=== PATIENT | female | born 1930 | race Caucasian/White ===

== ENCOUNTER 2018-03-22 11:34 | Inpatient (IN) ==
[2018-03-22] MEDS ORDERED: Ondansetron 4 MG/2 ML VIAL IVP ONE ×2 (11:46→14:12)
[2018-03-22] MEDS ORDERED: *HR* FentaNYL (PF) 100 MCG/2 ML VIAL IVP ONE ×2 (11:48→13:13)
--- NOTE | 2018-03-22 12:05 | Emergency Department Note ---
Disposition Clinical Impression: Hip fracture Qualifiers: Encounter type: initial encounter Fracture type: closed Laterality: right Qualified Code(s): S72.001A - Fracture of unspecified part of neck of right femur, initial encounter for closed fracture Disposition: Admitted As Inpatient Condition: Fair Referrals: NONE,PCP [Primary Care Provider] - Forms: ED Satisfaction Letter Time of Disposition: 14:45 Fall HPI - General Chief Complaint: ED Fall Stated Complaint: fall/R hip pain Time Seen by Provider: 03/22/18 11:39 Source: patient, EMS Mode of arrival: EMS Limitations: altered mental status - History of Present Illness HPI Narrative: Patient is an 87-year-old female who presented to [facility] ED on 03/22/18 with chief complaint of right-sided hip pain. Patient reports that she does not know how long she has had this hip pain, nor does she know how it started. Patient does not remember having a mechanical fall. She is unable to tell if she has ever had a similar injury before. Patient reports having extreme sharp pain in the right hip. Denies having any pain anywhere else. Pain is nonradiating. The patient is externally rotated. She has a small abrasion on her elbow. No other visible injuries. No further complaints at this time. Onset (ago): unknown Fall Witnessed: no Location of injury - extremities: Right: hip Severity: severe Associated symptoms (after fall): Denies: headache, neck pain, numbness - Related Data Home Medications Medication Instructions Recorded Confirmed LORazepam [Ativan] 0.5 mg PO DAILY 03/22/18 03/22/18 Levothyroxine [Synthroid] 175 mcg PO 0630 03/22/18 03/22/18 Loratadine [Claritin] 10 mg PO DAILY 03/22/18 03/22/18 Pravastatin Sodium [Pravachol] 20 mg PO HS 03/22/18 03/22/18 Sertraline [Zoloft] 150 mg PO DAILY 03/22/18 03/22/18 Allergies Allergy/AdvReac Type Severity Reaction Status Date / Time No Known Allergies Allergy Verified 07/07/16 11:48 Review of Systems: As Per HPI Constitutional: Reports: as per HPI. Denies: fever, chills, weakness Eyes: Reports: as per HPI ENT ED: Reports: as per HPI Cardiovascular: Reports: as per HPI. Denies: chest pain, palpitations, dyspnea on exertion Respiratory: Reports: as per HPI. Denies: cough, dyspnea, wheezes Gastrointestinal: Reports: as per HPI. Denies: abdominal pain, nausea, vomiting Genitourinary: Reports: as per HPI. Denies: urgency, dysuria, frequency Musculoskeletal: Reports: as per HPI. Denies: back pain Integumentary: Reports: as per HPI, abrasion Neurological: Reports: as per HPI, confusion. Denies: weakness, numbness Psychiatric: Reports: as per HPI. Denies: anxiety, depression Endocrine: Reports: as per HPI Fall PMH - Past Medical History Medical history: Reports: dementia, hyperlipidemia, hypertension, thyroid disease Psychiatric history: Reports: anxiety, depression - Social History Smoking Status: Unknown if ever smoked Alcohol use: Reports: none Drug use: Reports: none Physical Exam - General Limitations: altered mental status, physical limitation, age General appearance: alert, in no apparent distress - Head Head exam: atraumatic, normocephalic, normal inspection - Eye Eye exam: Present: normal appearance, PERRL, EOMI - ENT ENT exam: normal exam, normal oropharynx - Neck Neck exam: Present: normal inspection - Chest Chest inspection: Present: normal inspection, symmetric chest wall rise - Respiratory Respiratory exam: Present: normal lung sounds bilaterally. Absent: respiratory distress - Cardiovascular Cardiovascular exam: Present: regular rate, normal rhythm, normal heart sounds, +S1, +S2. Absent: bradycardia, tachycardia, systolic murmur, diastolic murmur - Abdominal Exam Abdominal exam: Present: soft, Non-Tender - Expanded Lower Extremity Exam Hip/Pelvis exam: Present: tenderness, deformity, external rotation (Patient's right hip is externally rotated.) - Neurological Exam Neurological exam: Present: alert Course Course Narrative: Patient presents to the emergency department with a possible right hip fracture after an unwitnessed fall. Patient is unable to provide any history, as she is unable to remember the event. We will obtain head and neck CT to rule out a head/neck injury. Patient will be given fentanyl for pain control. We will obtain x-ray of both the elbow and hip, as well as a CBC, CMP, PT/INR, and EKG - Reevaluation(s) Reevaluation #1: Hip x-ray demonstrated the presence of a right femoral neck fracture. Spoke with orthopedics; agreed to see patient. Spoke with the hospitalist; has agreed to accept the patient patient will be admitted to the hospitalist service. Vital Signs Temperature 97.5 F L 03/22/18 11:42 Pulse Rate 67 03/22/18 11:42 Respiratory Rate 18 03/22/18 11:42 Blood Pressure 182/139 03/22/18 11:42 O2 Sat by Pulse Oximetry 99 03/22/18 11:42 Temperature 97.5 F L 03/22/18 11:42 Pulse Rate 66 03/22/18 13:47 Respiratory Rate 18 03/22/18 13:47 Blood Pressure 195/112 03/22/18 13:47 O2 Sat by Pulse Oximetry 99 03/22/18 13:47 Oxygen Delivery Oxygen Delivery Nasal Cannula Fall - Medical Records Medical records reviewed: Yes I reviewed the patient's medical records. - Lab Data Lab results reviewed: Yes I reviewed the patient's lab results. Result diagrams: 03/22/18 11:46 03/22/18 14:00 Lab Results 03/22/18 03/22/18 03/22/18 Range/Units 11:46 14:00 14:00 WBC 10.5 (4.3-11.1) K/mcL RBC 4.11 (3.82-4.97) M/mcL Hgb 12.5 (11.5-15.4) g/dL Hct 39.6 (35.3-44.9) % MCV 96.4 (83.0-100.0) fL MCH 30.4 (28.0-33.3) pg MCHC 31.6 (31.6-35.5) g/dL RDW 13.4 (11.5-14.5) % Plt Count 65 L (140-400) K/mcL MPV 12.3 (9.4-12.4) fL Immature Gran % 1.0 (0-4) % Seg Neutrophils % 77.6 % Lymphocytes % 13.2 % Monocytes % 7.1 % Eosinophils % 0.8 % Basophils % 0.3 % Neutrophils # 8.2 (1.6-8.9) K/mcL Lymphocytes # 1.4 (0.6-4.6) K/mcL Monocytes # 0.8 (0.0-1.3) K/mcL Eosinophils # 0.1 (0.0-0.6) K/mcL Basophils # 0.0 (0.0-0.2) K/mcL PT 11.2 (9.4-12.1) Seconds INR 1.0 Sodium 139 (136-145) mEq/L Potassium 3.8 (3.5-5.1) mEq/L Chloride 106 (98-107) mEq/L Carbon Dioxide 24 (23-29) mEq/L BUN 31 H (8-23) mg/dL Creatinine 0.89 (0.60-1.20) mg/dL Est GFR ( Amer) > 60 (> 60) Est GFR (Non-Af Amer) 60 (> 60) BUN/Creatinine Ratio 35 H (6-26) Glucose 143 H (70-105) mg/dL Calculated Osmolality 297 (280-300) Calcium 8.6 (8.6-10.3) mg/dL Total Bilirubin 0.3 (0.3-1.0) mg/dL AST 19 (13-39) Units/L ALT 14 (7-52) Units/L Alkaline Phosphatase 71 (34-104) Units/L Serum Total Protein 6.6 (6.4-8.9) g/dL Albumin 3.9 (3.5-5.7) g/dL Globulin 2.7 (2.4-3.5) g/dL Albumin/Globulin Ratio 1.4 (1.1-2.2) - Radiology Data Radiology results reviewed: Yes I reviewed the patient's radiology results. Cervical Spine CT 03/22/18 11:46 IMPRESSION: 1. Reversal of the normal cervical lordosis, without acute fracture or subluxation of the cervical spine. 2. Mild approximate 3 mm anterolisthesis of C3 on C4, most likely degenerative in etiology. 3. Moderate multilevel degenerate disc disease, as detailed above. D/ / 03/22/2018 13:23:52 Stone Linares MD / [facility] Interpreting Provider: Stone Linares MD Elbow X-Ray 03/22/18 11:46 IMPRESSION: No acute osseous abnormality. D/ / 03/22/2018 12:45:04 Kristian Victor MD / [facility] Interpreting Provider: Kristian Victor MD Head CT 03/22/18 11:46 IMPRESSION: No acute intracranial abnormality. D/ / Kristian Victor MD / Kristian Victor MD Interpreting Provider: Kristian Victor MD Hip X-Ray 03/22/18 11:46 IMPRESSION: Subcapital right femoral neck fracture. D/ / 03/22/2018 12:46:28 Kristian Victor MD / [facility] Interpreting Provider: Kristian Victor MD - EKG Data EKG attestation: Yes I reviewed and interpreted this EKG. EKG results narrative: Sinus rhythm. Ventricular rate 66 bpm. MT interval 198. QRS duration 77. Attestation Statement - Attestation Attestation: Patient was seen with resident physician. I reviewed the history, physical, assessment and plan, and agree with the findings. I also personally evaluated this patient and had [id number] time with this patient. 87-year-old female presents emergency Department with chief complaint of fall. She is retirement patient who has dementia and does not really remember the incident or the event. She was unable to ambulate afterwards and EMS was contacted and she is brought to the emergency department for additional evaluation and treatment. Patient states that her hip hurts but has no other complaints at this time. Review of systems remainder reviewed as best as we could considering the patient 's dementia. Did not get any other positive findings. Physical exam vital signs were stable. ENT shows no signs of trauma head and neck are all nontender. Back is nontender. Heart regular rhythm and rate. Chest wall stable. Abdomen is soft there is no tenderness there is no bruising. Extremities she has a small bruise to the right elbow posteriorly but moves everything without difficulty and it is nontender. Extremities the right leg is externally rotated and shortened the right hip is exquisitely tender to palpation. Distal pulses are intact. Neurologically she is alert and appears in some discomfort, but there is no obvious focal deficits. Psych unable to evaluate fully. ED course we will do a preop evaluation and a full workup. The patient does have a right hip fracture. We will also get a head CT and a neck CT scan since she does not really remember the fall I want sure there is no intercranial abnormalities. We will notify orthopedics as well as a hospitalist service to arrange for admission and definitive management for the patient's condition. Head CT and neck CT were negative for acute injury. Other labs are largely unremarkable. EKG does not show acute ischemic changes. X-rays do show a right hip fracture. Orthopedics was counseled agree to accept the patient with medicine admission. Hospitalist service was notified and agreed to accept the patient as the admitting service. Hemodynamically she remained stable. We did her best control her pain with fentanyl. Blood pressure was high but it was very difficult to get a accurate reading because the patient continually moved around. Additionally patient has severe dementia was able to remember that she had a hip fracture even though between myself and the staff we told her approximately 100 times. I agree with resident physician assessment and plan.
[2018-03-22 13:14] LABS: Basophils % 0.3 %; Eosinophils # 0.1 K/mcL (0.0-0.6); Eosinophils % 0.8 %; Hematocrit 39.6 % (35.3-44.9); Hemoglobin 12.5 g/dL (11.5-15.4); Lymphocytes # 1.4 K/mcL (0.6-4.6); Lymphocytes % 13.2 %; Mean Corpuscular HGB Conc 31.6 g/dL (31.6-35.5); Mean Corpuscular Hemoglobin 30.4 pg (28.0-33.3); Mean Corpuscular Volume 96.4 fL (83.0-100.0); Mean Platelet Volume 12.3 fL (9.4-12.4); Monocytes % 7.1 %; Red Blood Count 4.11 M/mcL (3.82-4.97); Red Cell Distribution Width 13.4 % (11.5-14.5); Segmented Neutrophils % 77.6 %
[2018-03-22 13:38] LABS: Monocytes # 0.8 K/mcL (0.0-1.3); Neutrophils # 8.2 K/mcL (1.6-8.9); Platelet Count 65 K/mcL (140-400)
[2018-03-22 14:17] LABS: Prothrombin Time 11.2 Seconds (9.4-12.1)
[2018-03-22 14:33] LABS: Alanine Aminotransferase 14 Units/L (7-52); Albumin 3.9 g/dL (3.5-5.7); Albumin/Globulin Ratio 1.4 (1.1-2.2); Alkaline Phosphatase 71 Units/L (34-104); Aspartate Amino Transferase 19 Units/L (13-39); BUN/Creatinine Ratio 35 (6-26); Bilirubin,Total 0.3 mg/dL (0.3-1.0); Blood Urea Nitrogen 31 mg/dL (8-23); Calcium 8.6 mg/dL (8.6-10.3); Carbon Dioxide 24 mEq/L (23-29); Chloride 106 mEq/L (98-107); Globulin 2.7 g/dL (2.4-3.5); Glucose 143 mg/dL (70-105); Osmolality,Calculated 297 (280-300); Potassium 3.8 mEq/L (3.5-5.1); Sodium 139 mEq/L (136-145); Total Protein 6.6 g/dL (6.4-8.9); eGFR For African Americans > 60 (> 60); eGFR For Non-African Americans 60 (> 60)
[2018-03-22] MEDS ORDERED: Naloxone 0.4 MG/ML INJ IVP PRN (14:53)
[2018-03-22] MEDS ORDERED: Acetaminophen 325 MG TABLET PO PRN (14:53)
[2018-03-22] MEDS ORDERED: Ondansetron 4 MG/2 ML VIAL IVP PRN (14:56)
[2018-03-22] MEDS ORDERED: *HR* FentaNYL (PF) 100 MCG/2 ML VIAL IVP PRN ×2 (14:57→18:59)
[2018-03-22] MEDS ORDERED: 0.9 % Sodium Chloride 1,000 ML IVC SCH (15:00)
--- NOTE | 2018-03-22 15:00 | Internal Med History&Physical ---
<Ludwig Cannon - Last Filed: 03/22/18 14:58> Date of Encounter: 03/22/18 Time of Encounter: 14:58 Internal Medicine - H&P: HPI Admitted From: Long-term Nursing Facility Plans for Post Hospital Care: Transfer Student Worker Care History of present illness: Patient is an 87-year-old female who presented with chief complaint of right- sided hip pain. Patient reports that she does not know how long she has had this hip pain, nor does she know how it started. Patient does not remember having a mechanical fall. She is unable to tell if she has ever had a similar injury before. Patient reports having extreme sharp pain in the right hip. Denies having any pain anywhere else. Pain is nonradiating. Right leg is externally rotated. She has a small abrasion on her elbow. No other visible injuries. No further complaints at this time. At the ED, x-ray revealed right hip fracture, orthopedics was consulted, she will be admitted as inpatient for further management. Past Med Surg Social Fam HX - Past Medical History Medical history: dementia, hyperlipidemia, hypertension, thyroid disease Psychiatric history: anxiety, depression - Social History Smoking Status: Unknown if ever smoked Smokeless Tobacco Status: No Alcohol use: none Drug use: none Internal Medicine - H&P: Meds LORazepam [Ativan] 0.5 mg PO DAILY 03/22/18 [History] Levothyroxine [Synthroid] 175 mcg PO 0630 03/22/18 [History] Loratadine [Claritin] 10 mg PO DAILY 03/22/18 [History] Pravastatin Sodium [Pravachol] 20 mg PO HS 03/22/18 [History] Sertraline [Zoloft] 150 mg PO DAILY 03/22/18 [History] 3 Allergy/AdvReac Type Severity Reaction Status Date / Time No Known Allergies Allergy Verified 07/07/16 11:48 All Systems PM: A 10-system review of systems was performed and is negative for pertinent findings except as documented above in the HPI. Review of systems: REVIEW OF SYSTEMS: CONSTITUTIONAL: No weight loss, fever, chills, weakness or fatigue. HEENT: Eyes: No visual loss, blurred vision, double vision or yellow sclerae. Ears, Nose, Throat: No hearing loss, sneezing, congestion, runny nose or sore throat. SKIN: No rash or itching. CARDIOVASCULAR: No chest pain, chest pressure or chest discomfort. No palpitations or edema. RESPIRATORY: No shortness of breath, cough or sputum. GASTROINTESTINAL: No anorexia, nausea, vomiting or diarrhea. No abdominal pain or blood. GENITOURINARY: No dysuria, urgency, or frequency. NEUROLOGICAL: No headache, dizziness, syncope, paralysis, ataxia, numbness or tingling in the extremities. No change in bowel or bladder control. MUSCULOSKELETAL: see HPI. HEMATOLOGIC: No anemia, bleeding or bruising. LYMPHATICS: No enlarged nodes. No history of splenectomy. PSYCHIATRIC: No history of depression or anxiety. ENDOCRINOLOGIC: No reports of sweating, cold or heat intolerance. No polyuria or polydipsia. - Constitutional Vitals: Temp Pulse Resp BP Pulse Ox 97.5 F L 66 18 195/112 99 03/22/18 11:42 03/22/18 13:47 03/22/18 13:47 03/22/18 13:47 03/22/18 13:47 General appearance: Present: A&O X 2 Exam: PHYSICAL EXAMINATION: GENERAL APPEARANCE: The patient is alert, oriented and in no acute distress. HEENT: Head is normocephalic. The sinuses are nontender. Pupils are equal and reactive. The nares are patent. Oropharynx clear without lesions. NECK: Supple without lymphadenopathy. HEART: Regular rate and rhythm. LUNGS: No crackles or wheezes are heard. ABDOMEN: Soft, nontender, nondistended with good bowel sounds heard. Inguinal area is normal. EXTREMITIES: right hip externally rotated. NEUROLOGICAL: Gross nonfocal. SKIN: Warm and dry without any rash. Internal Med - H&P Results - Labs CBC & Chem 7: 03/22/18 11:46 03/22/18 14:00 - Assessment and plan (1) Hip fracture Current Visit: Yes Status: Acute Assessment and plan: 87-year-old female, [facility] resident, presented with acute right hip pain, status post a mechanical fall, x-ray revealed a right hip fracture. - History of dementia, hyperlipidemia, hypothyroidism, and hypertension. Patient denies history of CAD/IA/stroke/diabetes. - Blood pressure was elevated upon arrival, she is not on any BP medicine at the [facility], likely caused by pain/distress. - EKG pending, echocardiogram ordered, CBC ordered. - Revised cardiac risk index for preoperative risk is 1, low cardiac risk for surgery. - Orthopedics consult. Qualifiers: Encounter type: initial encounter Fracture type: closed Laterality: right Qualified Code(s): S72.001A - Fracture of unspecified part of neck of right femur, initial encounter for closed fracture (2) Dementia Current Visit: No Status: Chronic Assessment and plan: Mental status at baseline. Qualifiers: Dementia type: Alzheimer's disease Alzheimer's disease onset: late-onset Dementia behavioral disturbance: without behavioral disturbance Qualified Code (s): 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 disease with late onset; F02.80 - Dementia in other diseases classified elsewhere without behavioral disturbance (3) Hypertension Current Visit: No Status: Chronic Assessment and plan: Blood pressure elevated at the ED, likely due to pain, pain control, hydralazine when necessary. Qualifiers: Hypertension type: essential hypertension Qualified Code(s): I10 - Essential (primary) hypertension (4) Hypothyroidism Current Visit: No Status: Chronic Assessment and plan: Pending TSH, Continue home medication. Qualifiers: Hypothyroidism type: acquired Qualified Code(s): E03.9 - Hypothyroidism, unspecified - Time Spent With Patient Total time spent is greater than 50% in coordination of care (as documented) at patient's floor/unit and/or counseling patient: Greater than 35 minutes <Connor Romo - Last Filed: 03/22/18 19:13> Date of Encounter: 03/22/18 Internal Medicine - H&P: HPI History of present illness: Ms. Johnson is a 87 year old female All Systems PM: A 10-system review of systems was performed and is negative for pertinent findings except as documented above in the HPI. - Constitutional Vitals: Temp Pulse Resp BP Pulse Ox 98.5 F 78 20 191/99 96 03/22/18 16:14 03/22/18 16:14 03/22/18 16:14 03/22/18 16:14 03/22/18 16:14 Internal Med - H&P Results - Labs CBC & Chem 7: 03/22/18 11:46 03/22/18 14:00 - Attending Attestation I saw and examined this patient independently, and my medical decision making was reviewed with the COMMERCIAL INTELLIGENCE MANAGER/PA on 2017. I agree with the documented findings , assessment and treatment plan as described in the H&P. Patient abdominal is distended and will check KUB Patient is a very confused and demented she tried to move her right hip, produce a lot of pain, we will increase pain medication. - Time Spent With Patient Total time spent is greater than 50% in coordination of care (as documented) at patient's floor/unit and/or counseling patient:
--- NOTE | 2018-03-22 16:11 | Orthopedic Consult Note ---
Date of Encounter: 03/22/18 Time of Encounter: 16:09 Assessment and Plan (1) Fracture of hip, right, closed Current Visit: Yes Status: Acute Femoral neck fracture, displaced, most likely chronic with acute pain Plan: Patient would require a right hip hemiarthroplasty. Patient has significant dementia. If she is a nonambulator, the fracture may be treated conservatively with pain management. We are currently awaiting to hear from the patient's family power of assistant prosecuting attorney to decide on surgery. Qualifiers: Encounter type: initial encounter Qualified Code(s): S72.001A - Fracture of unspecified part of neck of right femur, initial encounter for closed fracture History of Present Illness Chief complaint: Right hip pain HPI: Ms. Johnson is a 87 year old female who is transferred from [facility] when a staff member noticed patient having pain in the right hip which being taken to the bathroom. There was no witnessed falls and the patient does not recall when she injured her hip. X-rays in the ER show a displaced right hip femoral neck fracture that is chronic. Patient is still reporting significant pain to the right hip currently. The patient has significant history for dementia. Unclear as to her ambulation status at this time. Past Med Surg Social Fam HX - Past Medical History Medical history: dementia, hyperlipidemia, hypertension, thyroid disease Psychiatric history: anxiety, depression - Social History Smoking Status: Unknown if ever smoked Smokeless Tobacco Status: No Alcohol use: none Drug use: none Medications and Allergies LORazepam [Ativan] 0.5 mg PO DAILY 03/22/18 [History] Levothyroxine [Synthroid] 175 mcg PO 0630 03/22/18 [History] Loratadine [Claritin] 10 mg PO DAILY 03/22/18 [History] Pravastatin Sodium [Pravachol] 20 mg PO HS 03/22/18 [History] Sertraline [Zoloft] 150 mg PO DAILY 03/22/18 [History] 3 Allergy/AdvReac Type Severity Reaction Status Date / Time No Known Allergies Allergy Verified 07/07/16 11:48 All Systems Reviewed: The remainder of the systems were reviewed and are negative Physical Exam - Constitutional Vitals: Temp Pulse Resp BP Pulse Ox 98 F 68 18 190/104 95 03/22/18 15:13 03/22/18 14:57 03/22/18 15:13 03/22/18 15:13 03/22/18 14:57 General appearance IM: A&O X 0, mild distress Exam: Head: Normocephalic/atraumatic Neck: Supple with mild diffuse tenderness Bilateral upper extremities, nontender over long bones, abrasion to left elbow Right lower extremity is shortened and externally rotated, mild tenderness in the anterior groin, painful range of motion Left lower extremity appears normal with no tenderness over joints or long bones Results - Labs Result Diagrams: 03/22/18 11:46 03/22/18 14:00 Labs: Abnormal lab results Plt Count 65 K/mcL (140-400) L 03/22/18 11:46 BUN 31 mg/dL (8-23) H 03/22/18 14:00 BUN/Creatinine Ratio 35 (6-26) H 03/22/18 14:00 Glucose 143 mg/dL (70-105) H 03/22/18 14:00 All other labs normal. - Diagnostic results Hip AP/Lateral x-ray: image reviewed (Displaced right hip femoral neck fracture , chronic in appearance) CT scan - cervical: report reviewed (Degenerative changes, reversal of normal lordosis) Consult Discharge Plan - Plan Referrals: NONE,PCP [Primary Care Provider] -
[2018-03-22] MEDS: *HR* Heparin 5,000 UNIT/ML VIAL SQ SCH (17:07)
[2018-03-22] MEDS: traMADol 50 MG TABLET PO PRN (19:15)
[2018-03-22 21:02] LABS: Bilirubin,Urine Negative (Negative); Blood,Urine Trace (Negative); Clarity,Urine Clear (Clear); Color,Urine Yellow (Yellow); Glucose,Urine (UA) Normal (Normal); Ketones,Urine Negative (Negative); Leukocyte Esterase,Urine Negative (Negative); Nitrite,Urine Negative (Negative); PH,Urine 5.5 pH Units (5.0-8.0); Protein,Urine 30 mg/dL (Neg-Trace); Specific Gravity,Urine 1.022 (1.010-1.025); Urobilinogen,Urine Normal (Normal)
[2018-03-22 21:04] LABS: Bacteria,Urine Many per hpf (None-Few); Hyaline Casts,Urine None Seen per lpf (None-Few); Squamous Epithelial Cell,Urine Many per lpf (None-Few); WBC,Urine 0-3 per hpf (0-3)
[2018-03-22] MEDS: Nystatin POWDER 30 GM BOTTLE TP SCH (23:18)
[2018-03-23] MEDS: *HR* Heparin 5,000 UNIT/ML VIAL SQ SCH ×2 (01:29→07:19)
[2018-03-23] MEDS: traMADol 50 MG TABLET PO PRN ×3 (02:36→20:45)
--- NOTE | 2018-03-23 07:22 | Anesthesia Evaluation PreOp ---
Date of Encounter: 03/23/18 Time of Encounter: 12:30 - Past History Planned Operation: Right Hip Hemiarthroplasty Cardiac History: HTN, Hyperlipidemia Pulmonary History: Denies Any Significant HX FACILITY REHAB DIRECTOR History: Other (dementia) Other Medical History: Thyroid, Other (anxiety/depression) Anesthesia History: No Prior Anesthetic Complications, Past Anesthesia Alcohol Use: none Drug use: none Medications and Allergies LORazepam [Ativan] 0.5 mg PO DAILY 03/22/18 [History] Levothyroxine [Synthroid] 175 mcg PO 0630 03/22/18 [History] Loratadine [Claritin] 10 mg PO DAILY 03/22/18 [History] Pravastatin Sodium [Pravachol] 20 mg PO HS 03/22/18 [History] Sertraline [Zoloft] 150 mg PO DAILY 03/22/18 [History] 3 Allergy/AdvReac Type Severity Reaction Status Date / Time No Known Allergies Allergy Verified 07/07/16 11:48 - Meds/Allergy Pre-op Review Medications Reviewed: Yes Allergies Reviewed: Yes Beta Blockers on Current Med List: No Anesthesia Results - Labs 03/23/18 10:38 03/23/18 09:58 03/22/2018 Echo Impressions: Grossly normal LV systolic function. Not all LV wall segments were well visualized. Mild left ventricular diastolic dysfunction. Normal right ventricular function. Mild aortic regurgitation. Mild mitral regurgitation. Mild-moderate tricuspid regurgitation. Mild pulmonary hypertension. - Imaging EKG: report reviewed (07/06/2016 SINUS RHYTHM WITH PAC NONSPECIFIC T-WAVE ABNORMALITY) Anesthesia Exam Vital Signs/O2 Sat, Most Current Temp Pulse Resp BP Pulse Ox 98.2 F 87 16 129/76 95 03/23/18 09:51 03/23/18 09:51 03/23/18 09:51 03/23/18 09:51 03/23/18 09:51 Height: 5'2''/1.57m Weight: 150 lbs/68 kg NPO (# of Hours): 8 Pain Scale: 0 Pain Scale Used: Numeric (1 - 10) - HEENT Pupil (Motor): EOMI Mallampati: II Teeth: Missing, Poor dentition Denture Type: Upper: Complete Oral Opening: Greater than 3 - FACILITY REHAB DIRECTOR LOC: Confused FACILITY REHAB DIRECTOR Motor: Normal RUE, Normal LUE, Normal RLE, Normal LLE, Normal Face FACILITY REHAB DIRECTOR Sensory: Normal: RUE, LUE, RLE, LLE, Face - Cardiac Rhythm: Regular Murmur: None - Pulmonary Breath Sounds: bilateral Clear Respiratory Effort: Symmetrical Anesthesia Assess/Plan ASA Score: 3 Modified [place] Scale for Level of Consciousness: Cooperative, oriented, and tranquil Anesthetic Plan: General Monitoring Plan: Standard Monitors Recovery Plan: PACU
[2018-03-23] MEDS: Nystatin POWDER 30 GM BOTTLE TP SCH ×2 (08:19→20:59)
[2018-03-23] MEDS ORDERED: *HR* LORazepam 0.5 MG TABLET PO SCH (09:00)
[2018-03-23] MEDS ORDERED: Loratadine 10 MG TABLET PO SCH (09:00)
[2018-03-23 10:47] LABS: Basophils % 0.3 %; Eosinophils % 0.4 %; Hematocrit 37.5 % (35.3-44.9); Hemoglobin 12.6 g/dL (11.5-15.4); Immature Granulocytes % 0.4 % (0-4); Lymphocytes # 0.9 K/mcL (0.6-4.6); Lymphocytes % 8.1 %; Mean Corpuscular HGB Conc 33.6 g/dL (31.6-35.5); Mean Corpuscular Hemoglobin 31.4 pg (28.0-33.3); Mean Corpuscular Volume 93.5 fL (83.0-100.0); Mean Platelet Volume 10.4 fL (9.4-12.4); Monocytes % 8.9 %; Neutrophils # 9.3 K/mcL (1.6-8.9); Red Blood Count 4.01 M/mcL (3.82-4.97); Red Cell Distribution Width 13.3 % (11.5-14.5); Segmented Neutrophils % 81.9 %
[2018-03-23 10:49] LABS: Platelet Count 160 K/mcL (140-400)
[2018-03-23 12:33] LABS: BUN/Creatinine Ratio 34 (6-26); Blood Urea Nitrogen 25 mg/dL (8-23); Calcium 8.3 mg/dL (8.6-10.3); Carbon Dioxide 26 mEq/L (23-29); Chloride 104 mEq/L (98-107); Glucose 103 mg/dL (70-105); Osmolality,Calculated 291 (280-300); Sodium 138 mEq/L (136-145); eGFR For African Americans > 60 (> 60); eGFR For Non-African Americans > 60 (> 60)
[2018-03-23 12:48] LABS: Potassium 3.5 mEq/L (3.5-5.1)
[2018-03-23] MEDS ORDERED: *HR* Rocuronium Bromide 50 MG/5 ML VIAL ONE (13:00)
[2018-03-23] MEDS ORDERED: *HR* Succinylcholine 200 MG/10 ML VIAL IVP ONE (13:00)
[2018-03-23] MEDS ORDERED: *HR* FentaNYL (PF) 100 MCG/2 ML VIAL ONE (13:00)
[2018-03-23] MEDS ORDERED: *HR* Propofol 200 MG/20 ML VIAL IVP ONE (13:00)
[2018-03-23] MEDS ORDERED: Lidocaine -MPF 2% 2 ML VIAL ONE (13:00)
[2018-03-23] MEDS ORDERED: *HR* PHENYLEPHRINE 1,000 MCG/10 ML SYRINGE IVP ONE (14:03)
[2018-03-23] MEDS ORDERED: ceFAZolin 2,000 MG in D5% in Water 100 ML IVPB ONE (14:16)
[2018-03-23] MEDS ORDERED: ceFAZolin 2,000 MG in 0.9 % Sodium Chloride 100 ML IVPB ONE (14:30)
[2018-03-23] MEDS ORDERED: Ondansetron 4 MG/2 ML VIAL ONE (15:02)
[2018-03-23] MEDS ORDERED: Dexamethasone 4 MG/ML VIAL ONE (15:02)
--- NOTE | 2018-03-23 16:21 | Anesthesia Evaluation Post Op ---
Date of Encounter: 03/23/18 Time of Encounter: 16:20 - Vital Signs Vital Signs: Vital Signs/O2 Sat, Most Current Temp Pulse Resp BP Pulse Ox 97.9 F 63 16 159/91 100 03/23/18 15:59 03/23/18 15:59 03/23/18 15:59 03/23/18 15:59 03/23/18 15:59 - Lungs Lungs: Clear Ascult./Percussion - Airway Airway: Non-obstructed - Cardiovascular Regular Rate - Mental Status Mental Status: Asleep with brisk response to light stimulation - Pain Pain Scale: 0 Pain Scale used: Numeric (1 - 10) - Nausea Vomiting Nausea Vomiting: Not Present - Hydration Hydration: NPO, Dias catheter - Discharge PostOp Status: Transfer Patient to floor
--- NOTE | 2018-03-23 16:24 | Operative Note ---
Date of procedure: 03/23/18 Pre-op diagnosis: Right hip femoral neck fracture Post-op diagnosis: same Procedure: Right hip hemiarthroplasty Implants: Josefina Biomet echo system Anesthesia: GETA Surgeon: Casper Moreno Was there an stores assistant present: No Estimated blood loss (cc): 150 Specimen: Femoral head sent to pathology Condition: stable Disposition: PACU Procedure in Detail: The patient received IV antibiotics in the holding area. She was brought to the operating room, sign in was performed. The patient underwent general anesthesia on the hospital bed. She was then transferred to the OR table in supine position. The patient was positioned in the left lateral decubitus position, supported by pelvic supports. Bony prominences of the left lower extremity were well padded. The right lower extremity was then prepped and draped in usual sterile fashion. A timeout was performed. The level of the greater trochanter was palpated, a 10-12 cm curvilinear posterior incision was made, followed by Bovie dissection. The hip abductor was sharply split in line with its fibers with a curved Hess scissors, incising the fascia over the gluteus ankush also. The Charnley retractors were then positioned, making sure all not to go too deeply, to protect the sciatic nerve. The bursa over the greater trochanter was excised with Bovie electrocautery. The right hip was then internally rotated, putting the short external rotators on stretch. These were taken down from the insertion point with the Bovie cautery, starting from less of a trochanter and going approximately to the femoral neck. The capsule along the posterior femoral neck and head was then T' ed, giving exposure to the fractured femoral head/neck. The head was then removed with a power corkscrew, and cutting the ligamentum teres. The head was measured and a size 45 mm diameter was chosen. The acetabulum was washed out of any bone fragments, and a trial head was placed giving a good fit. Next, the exposed fractured femoral neck was cleaned up with a rongeur, a hot box operator was then used to remove the lateral bone. The canal finder was then inserted. We then used a lateralizer, this pulled in the posterior flap of gluteus ankush muscle. The sciatic nerve was seen pulled up. On careful examination, the nerve was intact, We then started broaching with a press-fit broaches from the Josefina [employer]omet echo tray. Starting with a press-fit 7, and moving up to a press-fit 10, keeping the appropriate anteversion. The trial stem was well fixed with no toggling. The broach was then removed. The canal was irrigated out and suctioned. The Josefina [employer]omet Echo press-fit stem was then opened, using a lateralized 130 degree neck angle and a size 10 pressfit stem, the implant was tapped in place, making sure to keep the correct anteversion. Once well positioned, we trialed with a 45 mm diameter trial head, and a neutral neck length. Stability was checked along with leg length, it was felt that the leg length was slightly short. I then trialed with a +3 mm neck length. The leg lengths still felt short, we went up to a +6. The leg lengths felt equal, the patient had good extension of the left lower extremity, is able to flex the hip, adduct, and internally rotated up to 80 degrees before the hip started subluxing out. The trial components removed. The acetabulum was copiously irrigated with normal saline once again making sure it was well cleaned out. Next the 45 mm unipolar head was opened with a +6 mm neck length. This assembled and tapped in place. The hip was reduced, and stability was checked once again. We had good stability. The capsule was then closed with 2-0 FiberWire figure of 8 sutures. The leg was placed on Hess stand, and the short external rotators were reattached to the bone using the FiberWire. The tensor fascia along with the gluteus fascia was closed with FiberWire [id number] sutures and a #1 Vicryl running suture proximally. Once again irrigating the wound with pulse lavage. The deep fat layer was closed with 0 Vicryl, subcutaneous tissues with 2-0 Vicryl simple sutures, and finally the skin was closed with josefina. Sterile dressings were applied. A hip abduction wedge was in place between the patient' s legs. She was then rolled over into supine position and transferred back onto the hospital bed where she was extubated and taken to the recovery room in stable condition.
[2018-03-23] MEDS ORDERED: MOM Conc 10 ML UD.LIQ PO PRN (16:25)
[2018-03-23] MEDS ORDERED: *HR* OxyCODONE Immed Rel 5 MG TABLET PO PRN (16:25)
[2018-03-23] MEDS ORDERED: 0.9 % Sodium Chloride 1,000 ML IVC SCH (16:25)
[2018-03-23] MEDS ORDERED: Ringers Solution, Lactated 1,000 ML IVC SCH (16:25)
[2018-03-23] MEDS ORDERED: Ondansetron 4 MG/2 ML VIAL IVP PRN ×2 (16:25)
[2018-03-23] MEDS ORDERED: Naloxone 0.4 MG/ML INJ IVP PRN (16:25)
[2018-03-23] MEDS ORDERED: Sennosides 8.6 MG TABLET PO PRN (16:25)
[2018-03-23] MEDS ORDERED: Acetaminophen 325 MG TABLET PO PRN (16:25)
[2018-03-23] MEDS ORDERED: Temazepam 15 MG CAPSULE PO PRN (16:25)
[2018-03-23] MEDS: Ascorbic Acid 500 MG TABLET PO SCH (17:19)
[2018-03-23] MEDS: CeFAZolin Pre 2,000 MG/100 ML 2,000 MG/100 ML BAG IVPB SCH (23:07)
--- NOTE | 2018-03-23 23:08 | Internal Med Progress Note ---
Date of Encounter: 03/23/18 Time of Encounter: 19:00 - Assessment and plan (1) Fracture of hip, right, closed Current Visit: Yes Status: Acute Qualifiers: Encounter type: initial encounter Qualified Code(s): S72.001A - Fracture of unspecified part of neck of right femur, initial encounter for closed fracture (2) Hypothyroidism Current Visit: No Status: Chronic Qualifiers: Hypothyroidism type: acquired Qualified Code(s): E03.9 - Hypothyroidism, unspecified (3) HLD (hyperlipidemia) Current Visit: Yes Status: Acute (4) Depression with anxiety Current Visit: Yes Status: Acute - Time Spent With Patient Total time spent is greater than 50% in coordination of care (as documented) at patient's floor/unit and/or counseling patient: 25 - 35 minutes - Constitutional Vitals: Temp Pulse Resp BP Pulse Ox 97.7 F 74 16 121/76 93 03/23/18 22:23 03/23/18 22:23 03/23/18 22:23 03/23/18 22:23 03/23/18 22:23 General appearance: Present: A&O X 2 Internal Medicine: Result - Labs CBC & Chem 7: 03/23/18 10:38 03/23/18 09:58 Labs: Short CBC 03/23/18 Range/Units 10:38 WBC 11.4 H (4.3-11.1) K/mcL Hgb 12.6 (11.5-15.4) g/dL Hct 37.5 (35.3-44.9) % Plt Count 160 D (140-400) K/mcL Neutrophils # 9.3 H (1.6-8.9) K/mcL BMP 03/23/18 09:58 Sodium 138 Potassium 3.5 Chloride 104 Carbon Dioxide 26 BUN 25 H Creatinine 0.74 Glucose 103 Calcium 8.3 L - ABG Interpretation ABG results: PT/INR, D-dimer PT 11.2 Seconds (9.4-12.1) 03/22/18 14:00 - Impressions Impressions Echocardiogram 03/22/18 19:29 Impressions: Grossly normal LV systolic function. Not all LV wall segments were well visualized. Mild left ventricular diastolic dysfunction. Normal right ventricular function. Mild aortic regurgitation. Mild mitral regurgitation. Mild-moderate tricuspid regurgitation. Mild pulmonary hypertension. Left Ventricular Wall Motion: Rest Echo Findings The apex, apical inferior, mid inferior, basal inferior, apical anterior, mid anterior, basal anterior, mid anterior septal, mid inferior lateral, basal anterior septal and basal inferior lateral mendez were not visualized. All other wall segments showed normal motion. Findings: Study Quality * Technically challenging due to clinical status. No IV access for use of Definity. ECG Findings * Normal sinus rhythm. Left Ventricle * Grossly normal LV systolic function. * Mild left ventricular diastolic dysfunction. * Normal LV chamber size. * LV wall thickness not optimally measured due to image quality. Right Ventricle * Normal right ventricular function. Left Atrium * Normal left atrial size. Right Atrium * Normal right atrial size. Aortic Valve * Aortic valve not well visualized. * Mild aortic regurgitation. * Suboptimal Doppler interrogation. Mitral Valve * Normal mitral valve structure. * No mitral stenosis. * Mild mitral regurgitation. Tricuspid Valve * Tricuspid valve not well visualized. * Mild-moderate tricuspid regurgitation. * Estimated RA pressure is 3 mmHg. * Estimated RVSP is 45 mmHg. * Mild pulmonary hypertension. Pulmonic Valve * Pulmonic valve is not well visualized. * No pulmonic stenosis. * No pulmonic regurgitation. Pulmonary Artery * Pulmonary artery not well visualized. Aorta * Not well visualized. Pericardium * There is no pericardial effusion present. IVC * The IVC is not dilated. Hip X-Ray 03/23/18 15:52 IMPRESSION: Right hip arthroplasty without complication. D/ / 03/23/2018 16:19:13 Kristian Victor MD / [facility] Interpreting Provider: Kristian Victor MD - VTE Documentation of Mechanical Device: Intermittent pneumatic compression device Consult Discharge Plan - Plan Referrals: NONE,PCP [Primary Care Provider] -
[2018-03-24 01:34] LABS: Hematocrit 31.8 % (35.3-44.9); Hemoglobin 10.3 g/dL (11.5-15.4)
[2018-03-24 01:57] LABS: BUN/Creatinine Ratio 34 (6-26); Blood Urea Nitrogen 27 mg/dL (8-23); Calcium 7.5 mg/dL (8.6-10.3); Carbon Dioxide 22 mEq/L (23-29); Chloride 106 mEq/L (98-107); Glucose 124 mg/dL (70-105); Osmolality,Calculated 291 (280-300); Potassium 3.9 mEq/L (3.5-5.1); Sodium 137 mEq/L (136-145); eGFR For African Americans > 60 (> 60); eGFR For Non-African Americans > 60 (> 60)
[2018-03-24] MEDS: traMADol 50 MG TABLET PO PRN ×2 (02:47→18:44)
[2018-03-24 08:16] LABS: Estimated Average Glucose 123 mg/dl; Hemoglobin A1C 5.9 %
[2018-03-24] MEDS: Nystatin POWDER 30 GM BOTTLE TP SCH ×2 (10:19→22:38)
[2018-03-24] MEDS: Multivit/Ca/Min/Fe/FA 1 TAB TABLET PO SCH (10:20)
[2018-03-24] MEDS: Loratadine 10 MG TABLET PO SCH (10:20)
[2018-03-24] MEDS: Ascorbic Acid 500 MG TABLET PO SCH ×2 (10:20→17:31)
[2018-03-24] MEDS: *HR* LORazepam 0.5 MG TABLET PO SCH (10:21)
[2018-03-24] MEDS ORDERED: CefTRIAXone 2,000 MG VIAL IM ONE (11:43)
--- NOTE | 2018-03-24 11:43 | Orthopedics Progress Note ---
Date of Encounter: 03/24/18 Time of Encounter: 11:43 - Assessment and Plan (1) History of right hip hemiarthroplasty Current Visit: Yes Status: Acute Dressing changes daily. Discussed with patient son her weightbearing status which is weightbearing as tolerated. She is to continue PT/OT. As patient resides in a long-term care facility as a long-term resident recommend returning to that facility was the son states [place] once medically cleared. We did discuss that she will need to be evaluated in our office periodically and recommended follow-up in approximately 10-14 days. The son requested that we do perform all follow-up care at the facility. We did discuss that this is not feasible as we did not go to the nursing homes were patient's stay. However we did discuss that every accommodation would be made as necessary to keep patient comfortable yet achieve appropriate postoperative care. (2) Fracture of hip, right, closed Current Visit: Yes Status: Acute Qualifiers: Encounter type: initial encounter Qualified Code(s): S72.001A - Fracture of unspecified part of neck of right femur, initial encounter for closed fracture Subjective Principal diagnosis: Right femoral neck fracture Interval history: Patient is postoperative day #1 of right hip hemiarthroplasty performed on for right hip femoral neck fracture. This was performed by Dr. Moreno. Patient son is at the bedside and after asking several questions about the procedure and patient's prognosis. X-ray films were printed from postoperative as well as preoperative and presented to patient's son who is her POA to help answer some of his questions about the procedure.. We did discuss that she is weightbearing as tolerated however she states that her baseline is nearly bedridden. He is asking when patient will be discharged. At this time patient needs to be cleared by hospitalist for discharge however anticipated time of discharge would likely be tomorrow on 03/25/18 from an orthopedic surgical perspective. On examination patient is resting comfortably in bed. She is sleeping however is easily awoken. She is alert and oriented to person. On examination her right hip has dressings intact with no drainage noted. No skin deformity is noted to the surrounding incision. No calf tenderness noted to bilateral calves. She is neurovascularly intact to bilateral lower extremities. Posterior tibial pulses are intact. No foot drop is noted in either lower extremity. Patient has hip abduction pillow in place. Assessment: Status post right hip hemiarthroplasty for right femoral neck fracture Plan: Dressing changes daily. Discussed with patient son her weightbearing status which is weightbearing as tolerated. She is to continue PT/OT. As patient resides in a long-term care facility as a long-term resident recommend returning to that facility was the son states [facility] once medically cleared. We did discuss that she will need to be evaluated in our office periodically and recommended follow-up in approximately 10-14 days. The son requested that we do perform all follow-up care at the facility. We did discuss that this is not feasible as we did not go to the nursing homes were patient's stay. However we did discuss that every accommodation would be made as necessary to keep patient comfortable yet achieve appropriate postoperative care. Objective Vital signs: Vital Signs Temp Pulse Resp BP Pulse Ox 03/24/18 09:48 98.9 F 98 16 118/68 93 03/24/18 02:26 98.7 F 84 18 108/74 97 03/23/18 22:23 97.7 F 74 16 121/76 93 03/23/18 19:15 97.9 F 57 16 157/85 100 03/23/18 18:36 97.4 F L 63 12 143/82 100 03/23/18 18:18 100 03/23/18 18:16 97.4 F L 60 14 143/84 100 03/23/18 17:43 97.5 F L 58 12 158/85 100 03/23/18 17:17 97.4 F L 56 14 156/81 98 03/23/18 16:39 97.8 F 58 16 150/73 03/23/18 16:19 61 18 146/82 92 03/23/18 16:09 59 16 158/83 97 03/23/18 15:59 97.9 F 63 16 159/91 100 03/23/18 15:49 71 18 165/97 100 03/23/18 15:39 59 18 164/86 100 03/23/18 15:29 97.8 F 54 18 144/78 100 Intake and Output 03/23/18 03/24/18 03/24/18 23:59 07:59 15:59 Intake Total 0 / 0 0 / 0 Output Total 225 / 225 75 / 75 Balance -225 / -225 -75 / -75 Intake: Oral 0 / 0 0 / 0 Output: Catheter 225 / 225 75 / 75 - Labs CBC & BMP: 03/24/18 01:02 03/24/18 01:02 Labs: Abnormal lab results WBC 11.4 K/mcL (4.3-11.1) H 03/23/18 10:38 Hgb 10.3 g/dL (11.5-15.4) L D 03/24/18 01:02 Hct 31.8 % (35.3-44.9) L 03/24/18 01:02 Neutrophils # 9.3 K/mcL (1.6-8.9) H 03/23/18 10:38 Carbon Dioxide 22 mEq/L (23-29) L 03/24/18 01:02 BUN 27 mg/dL (8-23) H 03/24/18 01:02 BUN/Creatinine Ratio 34 (6-26) H 03/24/18 01:02 Glucose 124 mg/dL (70-105) H 03/24/18 01:02 Hemoglobin A1c 5.9 % (-5.6) H 03/23/18 09:58 Calcium 7.5 mg/dL (8.6-10.3) L 03/24/18 01:02 25-OH Vitamin D Total 26 ng/mL (30-80) L 03/23/18 09:58 TSH 5.828 mcIU/mL (0.340-5.600) H 03/23/18 09:58 Urine Protein 30 mg/dL (Neg-Trace) H 03/22/18 20:45 Urine Blood Trace (Negative) H 03/22/18 20:45 Ur Squamous Epith Cells Many per lpf (None-Few) H 03/22/18 20:45 Urine Bacteria Many per hpf (None-Few) H 03/22/18 20:45 - VTE Documentation of Mechanical Device: Intermittent pneumatic compression device Consult Discharge Plan - Plan Referrals: NONE,PCP [Primary Care Provider] -
--- NOTE | 2018-03-24 17:16 | Internal Med Progress Note ---
Date of Encounter: 03/24/18 Time of Encounter: 12:45 - Assessment and plan (1) Hip fracture Current Visit: Yes Status: Acute Assessment and plan: Hip XRay shows subcapital right femoral neck fracture; Orthopedics consulted, underwent right hip hemiarthroplasty POD-1; postoperative care per orthopedics; monitor Hb closely; noted to have a drop to 10.3 today, continue to monitor closely, started ferrous sulfate; DVT prophylaxis with s,c Lovenox; pain control with PRN PO Oxycodone; Qualifiers: Encounter type: initial encounter Fracture type: closed Laterality: right Qualified Code(s): S72.001A - Fracture of unspecified part of neck of right femur, initial encounter for closed fracture (2) Dementia Current Visit: Yes Status: Chronic Assessment and plan: supportive care and fall precautions; Qualifiers: Dementia type: Alzheimer's disease Alzheimer's disease onset: late-onset Dementia behavioral disturbance: without behavioral disturbance Qualified Code (s): 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 disease with late onset; F02.80 - Dementia in other diseases classified elsewhere without behavioral disturbance (3) Hypertension Current Visit: Yes Status: Chronic Qualifiers: Hypertension type: essential hypertension Qualified Code(s): I10 - Essential (primary) hypertension (4) Hypothyroidism Current Visit: Yes Status: Chronic Qualifiers: Hypothyroidism type: unspecified Qualified Code(s): E03.9 - Hypothyroidism , unspecified (5) Anemia Current Visit: Yes Status: Chronic Qualifiers: Anemia type: other cause Other causes of anemia: acute posthemorrhagic Qualified Code(s): D62 - Acute posthemorrhagic anemia - Time Spent With Patient Total time spent is greater than 50% in coordination of care (as documented) at patient's floor/unit and/or counseling patient: - Subjective Interval history: Patient is unable to provide history due to underlying dementia. She is uncooperative to physical exam, asking me to "leave the room as you do not belong here". - Constitutional Vitals: Temp Pulse Resp BP Pulse Ox 98.2 F 77 16 101/69 94 03/24/18 17:06 03/24/18 17:06 03/24/18 17:06 03/24/18 17:06 03/24/18 17:06 General appearance: Present: A&O X 1. Absent: answers questions appropriately - Respiratory Respiratory exam: Present: CTAB (anterolaterally). Absent: accessory muscle use , rales, rhonchi, wheezes - Cardiovascular Cardiovascular exam: Present: RRR, +S1, +S2. Absent: diastolic murmur, gallop, rubs, systolic murmur - GI/Abdominal GI/Abdominal exam: Present: distended, normal bowel sounds, soft, no peritoneal signs. Absent: tenderness - Extremities Exam Extremities exam: Present: warm, radial pulses palpable and symmetrical. Absent : calf tenderness, cyanotic, pedal edema Additional comments: right lateral hip in surgical dressing Internal Medicine: Result - Labs CBC & Chem 7: 03/24/18 01:02 03/24/18 01:02 Labs: Short CBC 03/24/18 Range/Units 01:02 Hgb 10.3 L D (11.5-15.4) g/dL Hct 31.8 L (35.3-44.9) % BMP 03/24/18 01:02 Sodium 137 Potassium 3.9 Chloride 106 Carbon Dioxide 22 L BUN 27 H Creatinine 0.80 Glucose 124 H Calcium 7.5 L - ABG Interpretation ABG results: PT/INR, D-dimer PT 11.2 Seconds (9.4-12.1) 03/22/18 14:00 - Impressions Impressions Hip X-Ray 03/23/18 15:52 IMPRESSION: Right hip arthroplasty without complication. D/ / 03/23/2018 16:19:13 [facility] Interpreting Provider: Kristian Victor MD - VTE Documentation of Mechanical Device: Intermittent pneumatic compression device Consult Discharge Plan - Plan Referrals: NONE,PCP [Primary Care Provider] -
[2018-03-24] MEDS ORDERED: Lidocaine -MPF 1% 5 ML AMPUL ONE (17:17)
[2018-03-24] MEDS: *HR* Enoxaparin 30 MG/0.3 ML SYRINGE SQ SCH ×2 (17:30→17:40)
[2018-03-24] MEDS: CeFAZolin Pre 2,000 MG/100 ML 2,000 MG/100 ML BAG IVPB SCH (17:30)
[2018-03-25 05:49] LABS: BUN/Creatinine Ratio 36 (6-26); Blood Urea Nitrogen 29 mg/dL (8-23); Calcium 7.5 mg/dL (8.6-10.3); Carbon Dioxide 22 mEq/L (23-29); Chloride 104 mEq/L (98-107); Glucose 105 mg/dL (70-105); Osmolality,Calculated 286 (280-300); Potassium 3.3 mEq/L (3.5-5.1); Sodium 135 mEq/L (136-145); eGFR For African Americans > 60 (> 60); eGFR For Non-African Americans > 60 (> 60)
[2018-03-25] MEDS: *HR* Enoxaparin 30 MG/0.3 ML SYRINGE SQ SCH (06:23)
--- NOTE | 2018-03-25 06:51 | Electrocardiograph Report ---
[address] [address] Test Date: 2018-03-22 Pat Name: Bella Johnson Department: 102 Room: [facility] Gender: F Weld Technician: Bryan : 1930 Requested By: Jitendra Moody Order Number: [id number] Reading MD: Nolberto Godoy Measurements Intervals Salol Rate: 66 P: 68 VT: 198 QRS: -4 QRSD: 77 T: 65 QT: 407 QTc: 421 Interpretive Statements SINUS RHYTHM WITH SINUS ARRHYTHMIA Electronically Signed On 03-25-2018 6:49:28 EDT by Nolberto Godoy
[2018-03-25 07:23] LABS: Basophils % 0.2 %; Eosinophils # 0.1 K/mcL (0.0-0.6); Eosinophils % 0.7 %; Hematocrit 25.3 % (35.3-44.9); Hemoglobin 8.7 g/dL (11.5-15.4); Immature Granulocytes % 0.8 % (0-4); Lymphocytes # 1.1 K/mcL (0.6-4.6); Lymphocytes % 9.3 %; Mean Corpuscular HGB Conc 34.4 g/dL (31.6-35.5); Mean Corpuscular Hemoglobin 31.6 pg (28.0-33.3); Mean Platelet Volume 11.7 fL (9.4-12.4); Monocytes # 1.5 K/mcL (0.0-1.3); Monocytes % 13.4 %; Neutrophils # 8.7 K/mcL (1.6-8.9); Nucleated Red Blood Cells 0.2 /100 WBC (0); Platelet Count 114 K/mcL (140-400); Red Blood Count 2.75 M/mcL (3.82-4.97); Red Cell Distribution Width 13.4 % (11.5-14.5); Segmented Neutrophils % 75.6 %
[2018-03-25] MEDS: Multivit/Ca/Min/Fe/FA 1 TAB TABLET PO SCH (10:32)
[2018-03-25] MEDS: *HR* LORazepam 0.5 MG TABLET PO SCH (10:32)
[2018-03-25] MEDS: Ascorbic Acid 500 MG TABLET PO SCH (10:32)
[2018-03-25] MEDS: Loratadine 10 MG TABLET PO SCH (10:33)
[2018-03-25] MEDS: Nystatin POWDER 30 GM BOTTLE TP SCH (10:40)
[2018-03-25] MEDS ORDERED: Potassium Chloride Elixir 20 MEQ/15 ML UDC PO ONE (12:28)
--- NOTE | 2018-03-25 13:48 | Discharge Summary ---
- NOTES TO OUTPATIENT PROVIDER Notes to Outpatient Provider: right hip fracture s/p surgery; monitor H/H Orders not resulted at time of discharge: Pending orders 03/25/18 12:26 Red Blood Cells [BBK] Stat Type and Screen [BBK] Stat Date of Encounter: 03/25/18 Time of Encounter: 13:45 - Discharge Diagnosis (1) Hip fracture Priority: Primary Status: Acute Qualifiers: Encounter type: initial encounter Fracture type: closed Laterality: right Qualified Code(s): S72.001A - Fracture of unspecified part of neck of right femur, initial encounter for closed fracture (2) Dementia Priority: Secondary Status: Chronic Qualifiers: Dementia type: Alzheimer's disease Alzheimer's disease onset: late-onset Dementia behavioral disturbance: with behavioral disturbance Qualified Code(s) : 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 disease with late onset; F02.81 - Dementia in other diseases classified elsewhere with behavioral disturbance (3) Hypertension Priority: Secondary Status: Chronic Qualifiers: Hypertension type: essential hypertension Qualified Code(s): I10 - Essential (primary) hypertension (4) Hypothyroidism Priority: Secondary Status: Chronic Qualifiers: Hypothyroidism type: unspecified Qualified Code(s): E03.9 - Hypothyroidism , unspecified (5) Anemia Priority: Primary Status: Chronic Qualifiers: Anemia type: other cause Other causes of anemia: acute posthemorrhagic Qualified Code(s): D62 - Acute posthemorrhagic anemia Hospital course: Ms. Johnson is a 87 year old female long-term alf resident, who was admitted with right-sided hip pain. X-ray showed right hip fracture. Orthopedic surgery was consulted, patient underwent right hip hemiarthroplasty on 03/23/2018. She was noted to have postoperative drop in hemoglobin, PRBC transfusion was planned however patient is extremely uncooperative due to underlying dementia, is unable to keep IV lines in. She was started on oral ferrous sulfate supplements and vitamin C. Case was discussed with orthopedic surgery, patient is currently stable for discharge back to [facility] with outpatient orthopedics follow-up. She is being discharged on prophylactic subcutaneous Lovenox. Discharge discussed with: nurse, oracle identity management consultant - Time Spent with Patient Total time spent providing and/or coordinating discharge services: Greater than 30 minutes (45 min) - Discharge Medications Prescriptions: Tramadol HCl [Ultram] 50 mg PO Q6H PRN 3 Days #5 tab PRN Reason: Severe Pain Home Medications: Levothyroxine [Synthroid] 175 mcg PO 0630 03/22/18 [History] Loratadine [Claritin] 10 mg PO DAILY 03/22/18 [History] Pravastatin Sodium [Pravachol] 20 mg PO HS 03/22/18 [History] Sertraline [Zoloft] 150 mg PO DAILY 03/22/18 [History] Acetaminophen [Tylenol] 650 mg PO Q6HR PRN tablet 03/25/18 [Rx] Ascorbic Acid [Vitamin C] 500 mg PO BIDWM tablet 03/25/18 [Rx] Docusate [Colace] 100 mg PO BID capsule 03/25/18 [Rx] Enoxaparin [Lovenox] 30 mg SQ Q12HCO #24 syringe 03/25/18 [Rx] Ferrous Sulfate 325 mg PO BIDWM tablet 03/25/18 [Rx] LORazepam [Ativan] 0.5 mg PO DAILY 5 Days #5 03/25/18 [Rx] Tramadol HCl [Ultram] 50 mg PO Q6H PRN 3 Days #5 tab 03/25/18 [Rx] Allergies/Adverse Reactions: 3 Allergy/AdvReac Type Severity Reaction Status Date / Time No Known Allergies Allergy Verified 07/07/16 11:48 Date of admission: 03/22/18 14:49 Primary care physician: PCP NONE Consults: 03/22/18 20:01 Consult to Nutrition [CONS] Routine Comment: Consulting Provider: NUTRITION Reason for Dietary Consult: MST Score 03/23/18 16:25 Consult to Nurse Navigator [CONS] Routine Comment: ortho navigator Consult to Occupational Therapy [CONS] Routine Comment: Evaluate, develop and implement POC Reason for Consult: total hip replacement Does patient have active BEDREST order?: No Is patient medically & hemodynamically stable?: Yes Consult to Physical Therapy [CONS] Routine Comment: Evaluate, develop and implement POC Reason for Consult: total hip replacement Does patient have active BEDREST order?: No Is patient medically & hemodynamically stable?: Yes Consult to Drop Crew Laborer [CONS] Routine Reason for SW Consult: post op joint replacement RT Post Op Consult [CONS] Routine Discharging clinician: Lydia Villalobos Anticipated date of discharge: 03/25/18 - Constitutional Vitals: Temp Pulse Resp BP Pulse Ox 98.9 F 81 18 122/76 94 03/25/18 11:33 03/25/18 11:33 03/25/18 11:33 03/25/18 11:33 03/25/18 11:33 General appearance: Present: A&O X 1. Absent: answers questions appropriately - Cardiovascular Cardiovascular exam: Present: RRR, +S1, +S2. Absent: diastolic murmur, gallop, rubs, systolic murmur - Patient Status Disposition: Transfer SNF Condition: Fair Functional capacity at discharge: uses cane/walker Overall status at discharge: patient is progressing back to baseline - Discharge Instructions Follow Up With: NONE,PCP [Primary Care Provider] - Additional Instructions: F/up with PCP in 1-2 weeks F/up with [facility] in 10-14 days Discharge Instructions: Total Hip Replacement Please call [facility] ([phone]), your Primary Care Physician, or report to the Emergency Room if you have any of the following symptoms: Nausea, vomiting, fever greater that 101.5, swelling, chest pain, shortness of breath, increased pain/redness/drainage/odor for your incision site, numbness/ tingling, or any other concerning symptoms. ACTIVITY:Weight-bearing as tolerated for 8 weeks with hip dislocation precautions that physical therapy taught you. You may progress as tolerated under the guidance of your physical therapist. You do not need to sleep with a pillow between your legs. You can also seep on the operative side or on your stomach. MEDICATIONS: Upon discharge resume your home medications. Take all the medications as prescribed. Take a stool softener if taking narcotic pain medications. Stool softeners are only effective if you drink enough fluids. Drink 6-8 glass of water or fluids a day, unless this is not allowed for another health problem. Despite using stool softeners, if you haven't had a bowel movement in 3 days, please switch to a gentle laxative. Gentle laxatives are sold over the counter. You should have a bowel movement within 24 hours, if not call the office. You will be discharged from the hospital with a prescription for pain medication. You are encouraged to decrease the use of narcotic pain medication as tolerated. Should you require a refill, please call the office. [facility] prescribes narcotic pain medication for only 4-6 weeks after surgery. If you require pain medication beyond this time period, you may be referred to your Primary Care Physician or to the Pain Clinic for further evaluation. Plan ahead for refills on pain medication as many narcotics either need to be picked up at the office or mailed. It is best to call 48-72 hours in advance of needing a prescription refill so you don't run out of medication. To help control the post-operative pain, you may take NSAIDs (Aleve,Advil, Motrin, ibuprofen, naprosyn) or Tylenol as prescribed on the bottle in addition to the pain medication. ANTICOAGULATION (blood thinners): Continue your Aspirin, Lovenox or Coumadin as prescribed to help prevent a blood clot in the leg or in the lungs. As long as your incision remains dry and you tolerate the NSAIDs (Aleve, Advil, Motrin, Ibuprofen, Naprosyn), it is OK to use the NSAIDS while you are taking your anticoagulation medication. Should your incision start to drain, stop the NSAID and contact our office. Common symptoms of blood clot in the legs include: localized pain, swelling, calf tenderness, redness or discoloration of the skin. Blood clot in the lung symptoms include: shortness of breath, rapid pulse, sweating, and chest pain that worsens with deep breathing, coughing up blood, lightheadedness, feelings of anxiety. If you experience any of these symptoms notify your physician immediately, go to the emergency room, or if having trouble breathing, call 911. WOUND CARE: Leave the dressing on for 7 to 10days. You may change the dressing if it is saturated greater than 50%. Do not get the dressing wet at anytime. Wash your hands with antibacterial soap, rinse and dry prior to any wound care. If you have josefina the visiting nurse or rehab facility can remove the stapes 10-14 days after surgery and place steri-strips across the wound. Leave the steri-strips in place until they fall off on their own. You may let water from the shower run on top of the steri-strips. If you do not have a visiting nurse or rehab facility, you will need to return to the office at 10-14 days for the josefina to be removed. If you have itching or redness around the dressing call the office. FOLLOW-UP: Please follow up with your surgeon in the orthopedic clinic in 6 weeks from the day of surgery. If you have josefina that need to be removed, you will need to come back to the office in 10-14 days from the day of surgery. - Diet and Activity Activity: as per physical therapy (WBAT) Diet: low salt diet - VTE Documentation of Mechanical Device: Intermittent pneumatic compression device
--- NOTE | 2018-03-25 13:54 | Physician Discharge Referral ---
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 Prognosis: Fair - Transfer Medications Prescriptions: Tramadol HCl [Ultram] 50 mg PO Q6H PRN 3 Days #5 tab PRN Reason: Severe Pain Home Medications: Levothyroxine [Synthroid] 175 mcg PO 0630 03/22/18 [History] Loratadine [Claritin] 10 mg PO DAILY 03/22/18 [History] Pravastatin Sodium [Pravachol] 20 mg PO HS 03/22/18 [History] Sertraline [Zoloft] 150 mg PO DAILY 03/22/18 [History] Acetaminophen [Tylenol] 650 mg PO Q6HR PRN tablet 03/25/18 [Rx] Ascorbic Acid [Vitamin C] 500 mg PO BIDWM tablet 03/25/18 [Rx] Docusate [Colace] 100 mg PO BID capsule 03/25/18 [Rx] Enoxaparin [Lovenox] 30 mg SQ Q12HCO #24 syringe 03/25/18 [Rx] Ferrous Sulfate 325 mg PO BIDWM tablet 03/25/18 [Rx] LORazepam [Ativan] 0.5 mg PO DAILY 5 Days #5 03/25/18 [Rx] Tramadol HCl [Ultram] 50 mg PO Q6H PRN 3 Days #5 tab 03/25/18 [Rx] Allergies/Adverse Reactions: 3 Allergy/AdvReac Type Severity Reaction Status Date / Time No Known Allergies Allergy Verified 07/07/16 11:48 - Respiratory Orders Smoking Cessation: Smoking cessation has been advised. For more information, call the [place] Tobacco Quit Line at 5-578-HDBX-NOW. - Advance Directives Power of Gear Changer: Yes (Son) Code Status: Full Code - Mobility Orders Ambulate - Rehabiliation Orders Rehab Potential: Fair Rehab Orders: ROM Exercises, Evaluation for Physical Therapy, Evaluation for Occupational Therapy - Diet Orders Cardiac CERTIFICATION: I certify that the transfer of the above named patient to an Extended Care Facility is necessary for the continuing treatment of the diagnosis listed. The above information is true and accurate reflection of patient's current condition. Confidential - Redisclosure prohibited without a patient's written consent.
[2018-03-25 14:50] VITALS: BP 135/78
--- NOTE | 2018-03-25 16:32 | Orthopedics Progress Note ---
Date of Encounter: 03/25/18 Time of Encounter: 13:00 - Assessment and Plan (1) Hip fracture Current Visit: Yes Status: Acute POD#2 s/p right hip hemiarthroplasty 03/23/18 Continue with therapy WBAT. Hgb 8.2 today. plan was for Powerglide insertion for transufsion but patient has removed every IV placed thus far. Continue to use abduction pillow while in bed. Continue to follow hip precautions. Dressings to right hip to be changed as needed for any drainage, none visible currently. DVT Prophylaxis: lovenox x 2 weeks then aspirin 325mg x 4 weeks. Will follow up with Leanne Grant PA-C in [facility] office at [facility] Qualifiers: Encounter type: initial encounter Fracture type: closed Laterality: right Qualified Code(s): S72.001A - Fracture of unspecified part of neck of right femur, initial encounter for closed fracture Subjective Principal diagnosis: POD#2 s/p right hip hemiarthroplasty 03/23/18 Interval history: Patient sitting comfortably in bed, denies any concerns at this time. States she has no pain to hip and states she worked with therapy this morning. Objective Vital signs: Vital Signs Temp Pulse Resp BP Pulse Ox 03/25/18 14:47 98.7 F 88 16 135/78 93 03/25/18 11:33 98.9 F 81 18 122/76 94 03/25/18 06:32 99.0 F 98 16 143/74 93 03/25/18 03:25 98.1 F 93 14 131/69 93 03/24/18 23:06 99.7 F H 91 16 104/65 95 03/24/18 19:44 100.1 F H 96 18 105/62 93 03/24/18 17:06 98.2 F 77 16 101/69 94 Intake and Output 03/25/18 03/25/18 03/25/18 07:59 15:59 23:59 Other: Stool Size Moderate Stool Consistency soft Stool Color Brown # Urine Diapers 1 # Bowel Movements 1 # Bowel Movement Diapers 1 Incision: clean and dry (dressings to right hip are c/d/i with no visible drainage or surrounding erythema, mild tenderness to palpation of right hip. no calf tenderness to palpation. good dorsiflexion of foot. grossly NV intact.) - Labs CBC & BMP: 03/25/18 06:59 03/25/18 05:05 Labs: Abnormal lab results WBC 11.5 K/mcL (4.3-11.1) H 03/25/18 06:59 RBC 2.75 M/mcL (3.82-4.97) L 03/25/18 06:59 Hgb 8.7 g/dL (11.5-15.4) L D 03/25/18 06:59 Hct 25.3 % (35.3-44.9) L 03/25/18 06:59 Plt Count 114 K/mcL (140-400) L 03/25/18 06:59 Monocytes # 1.5 K/mcL (0.0-1.3) H 03/25/18 06:59 Nucleated RBCs/100 WBC 0.2 /100 WBC (0) H 03/25/18 06:59 Sodium 135 mEq/L (136-145) L 03/25/18 05:05 Potassium 3.3 mEq/L (3.5-5.1) L 03/25/18 05:05 Carbon Dioxide 22 mEq/L (23-29) L 03/25/18 05:05 BUN 29 mg/dL (8-23) H 03/25/18 05:05 BUN/Creatinine Ratio 36 (6-26) H 03/25/18 05:05 Hemoglobin A1c 5.9 % (-5.6) H 03/23/18 09:58 Calcium 7.5 mg/dL (8.6-10.3) L 03/25/18 05:05 25-OH Vitamin D Total 26 ng/mL (30-80) L 03/23/18 09:58 TSH 5.828 mcIU/mL (0.340-5.600) H 03/23/18 09:58 Urine Protein 30 mg/dL (Neg-Trace) H 03/22/18 20:45 Urine Blood Trace (Negative) H 03/22/18 20:45 Ur Squamous Epith Cells Many per lpf (None-Few) H 03/22/18 20:45 Urine Bacteria Many per hpf (None-Few) H 03/22/18 20:45 - VTE Documentation of Mechanical Device: Intermittent pneumatic compression device Consult Discharge Plan - Plan Additional Instructions: F/up with PCP in 1-2 weeks F/up with [facility] in 10-14 days Discharge Instructions: Total Hip Replacement Please call [facility] ([phone]), your Primary Care Physician, or report to the Emergency Room if you have any of the following symptoms: Nausea, vomiting, fever greater that 101.5, swelling, chest pain, shortness of breath, increased pain/redness/drainage/odor for your incision site, numbness/ tingling, or any other concerning symptoms. ACTIVITY:Weight-bearing as tolerated for 8 weeks with hip dislocation precautions that physical therapy taught you. You may progress as tolerated under the guidance of your physical therapist. You do not need to sleep with a pillow between your legs. You can also seep on the operative side or on your stomach. MEDICATIONS: Upon discharge resume your home medications. Take all the medications as prescribed. Take a stool softener if taking narcotic pain medications. Stool softeners are only effective if you drink enough fluids. Drink 6-8 glass of water or fluids a day, unless this is not allowed for another health problem. Despite using stool softeners, if you haven't had a bowel movement in 3 days, please switch to a gentle laxative. Gentle laxatives are sold over the counter. You should have a bowel movement within 24 hours, if not call the office. You will be discharged from the hospital with a prescription for pain medication. You are encouraged to decrease the use of narcotic pain medication as tolerated. Should you require a refill, please call the office. [facility] prescribes narcotic pain medication for only 4-6 weeks after surgery. If you require pain medication beyond this time period, you may be referred to your Primary Care Physician or to the Pain Clinic for further evaluation. Plan ahead for refills on pain medication as many narcotics either need to be picked up at the office or mailed. It is best to call 48-72 hours in advance of needing a prescription refill so you don't run out of medication. To help control the post-operative pain, you may take NSAIDs (Aleve,Advil, Motrin, ibuprofen, naprosyn) or Tylenol as prescribed on the bottle in addition to the pain medication. ANTICOAGULATION (blood thinners): Continue your Aspirin, Lovenox or Coumadin as prescribed to help prevent a blood clot in the leg or in the lungs. As long as your incision remains dry and you tolerate the NSAIDs (Aleve, Advil, Motrin, Ibuprofen, Naprosyn), it is OK to use the NSAIDS while you are taking your anticoagulation medication. Should your incision start to drain, stop the NSAID and contact our office. Common symptoms of blood clot in the legs include: localized pain, swelling, calf tenderness, redness or discoloration of the skin. Blood clot in the lung symptoms include: shortness of breath, rapid pulse, sweating, and chest pain that worsens with deep breathing, coughing up blood, lightheadedness, feelings of anxiety. If you experience any of these symptoms notify your physician immediately, go to the emergency room, or if having trouble breathing, call 911. WOUND CARE: Leave the dressing on for 7 to 10days. You may change the dressing if it is saturated greater than 50%. Do not get the dressing wet at anytime. Wash your hands with antibacterial soap, rinse and dry prior to any wound care. If you have josefina the visiting nurse or rehab facility can remove the stapes 10-14 days after surgery [address] steri-strips across the wound. Leave the steri-strips in place until they fall off on their own. You may let water from the shower run on top of the steri-strips. If you do not have a visiting nurse or rehab facility, you will need to return to the office at 10-14 days for the josefina to be removed. If you have itching or redness around the dressing call the office. FOLLOW-UP: Please follow up with your surgeon in the orthopedic clinic in 6 weeks from the day of surgery. If you have josefina that need to be removed, you will need to come back to the office in 10-14 days from the day of surgery. Referrals: NONE,PCP [Primary Care Provider] - Prescriptions: Tramadol HCl [Ultram] 50 mg PO Q6H PRN 3 Days #5 tab PRN Reason: Severe Pain
== END 2018-03-25 16:41 | DRG 470 ==
LOC: EMEROO 11:34 → SUATTDRO 14:49 → 3NENU 14:49
PROVIDERS: ADMIT Hospitalist; ATTEND Internal Medicine

== ENCOUNTER 2018-03-26 19:16 | Inpatient (IN) ==
--- NOTE | 2018-03-26 19:20 | Emergency Department Note ---
Disposition Clinical Impression: Ileus, Hypokalemia Disposition: Admitted As Inpatient Condition: Fair Referrals: NONE,PCP [Primary Care Provider] - Time of Disposition: 22:11 General Adult HPI - General Stated complaint: Bowel Obstruction Time Seen by Provider: 03/26/18 19:18 Nursing Notes Reviewed: Yes Vital Signs Reviewed: Yes - History of Present Illness HPI Narrative: 87-year-old female presents to the emergency department from her nursing facility with concern for abdominal distention. Patient had a recent operation on her right pelvis and discharge from the hospital. Patient has known history of dementia. Patient not currently complaining of any abdominal pain at this time. Reported possible confusion from EMS but not from nursing facility. No narcotic medication per retirement facility medication list. - Related Data Home Medications Medication Instructions Recorded Confirmed Levothyroxine [Synthroid] 175 mcg PO 0630 03/22/18 03/26/18 Loratadine [Claritin] 10 mg PO DAILY 03/22/18 03/26/18 Pravastatin Sodium [Pravachol] 20 mg PO HS 03/22/18 03/26/18 Sertraline [Zoloft] 150 mg PO DAILY 03/22/18 03/26/18 Previous Rx's Medication Instructions Recorded Docusate [Colace] 100 mg PO BID capsule 03/25/18 Ferrous Sulfate 325 mg PO BIDWM tablet 03/25/18 LORazepam [Ativan] 0.5 mg PO DAILY 5 Days #5 03/25/18 Tramadol HCl [Ultram] 50 mg PO Q6H PRN 3 Days #5 tab 03/25/18 Allergies Allergy/AdvReac Type Severity Reaction Status Date / Time No Known Allergies Allergy Verified 07/07/16 11:48 All systems ED: reviewed and negative except as stated. Review of Systems: As Per HPI Constitutional: Denies: fever Cardiovascular: Denies: chest pain, palpitations Respiratory: Denies: cough, dyspnea, wheezes Gastrointestinal: Denies: abdominal pain, nausea, vomiting Genitourinary: Denies: urgency, dysuria, frequency Musculoskeletal: Denies: back pain Neurological: Denies: headache, weakness, numbness, paresthesias Past Medical History - Past Medical History Medical history: Reports: dementia, hyperlipidemia, hypertension, thyroid disease Psychiatric history: Reports: anxiety, depression - Social History Smoking Status: Unknown if ever smoked Smokeless Tobacco Status: No Alcohol use: Reports: none Drug use: Reports: none Physical Exam - General General appearance: alert, in no apparent distress - Head Head exam: atraumatic, normocephalic - ENT ENT exam: normal oropharynx, mucous membranes moist - Neck Neck exam: Present: trachea midline. Absent: tenderness - Chest Chest inspection: Present: normal inspection, symmetric chest wall rise - Respiratory Respiratory exam: Present: normal lung sounds bilaterally. Absent: respiratory distress, wheezes, accessory muscle use - Cardiovascular Cardiovascular exam: Present: regular rate, normal rhythm, normal heart sounds - Abdominal Exam Abdominal exam: Present: soft, Non-Tender. Absent: distention, guarding, rebound, rigidity - Extremities Exam Extremities exam: Absent: pedal edema - Neurological Exam Neurological exam: Present: alert, CN II-XII intact, other (GCS 15, no pronator drift, left lower extremity 5 out of 5 in strength, right lower extremity not able to assess due to recent operation.) - Psychiatric Psychiatric exam: Present: normal affect, normal mood Course Vital Signs Temperature 98.7 F 03/26/18 19:20 Pulse Rate 72 03/26/18 19:20 Respiratory Rate 18 03/26/18 19:20 Blood Pressure 149/82 03/26/18 19:20 O2 Sat by Pulse Oximetry 93 03/26/18 19:20 Temperature 98.7 F 03/26/18 19:20 Pulse Rate 85 03/26/18 21:19 Respiratory Rate 18 03/26/18 21:19 Blood Pressure 157/82 03/26/18 21:19 O2 Sat by Pulse Oximetry 96 03/26/18 21:19 Oxygen Delivery Oxygen Delivery Room Air Medical Decision Making - [facility] Narrative Medical decision making narrative: 79-year-old female presents emergency department with concern for abdominal distention. We will obtain CT scan of abdomen and pelvis. Patient was nontender on physical exam, but does have an element of dementia which could complicate Her care. There was some mild confusion reported by EMS. Patient does have history of dementia. Patient was neurologically intact for my exam. Cranial nerves II through XII were grossly intact and patient had no pronator drift, with GCS of 15. Hemoglobin is 9.5. This is within her normal range. Potassium is 2.9. We will replace this with 40 mEq of IV potassium. CT scan reveals severe gaseous distention of the entire colon to represent either ileus or distal obstruction at the level of lower rectum. I spoke with Dr. Esqueda, the general surgeon regarding the case. He recommended rectal tube placement and possible serial enemas dependent upon the results from the rectal tube. I spoke with the radiologist on the phone regarding concern for possible volvulus. They state that there is no volvulus at this time. Patient was admitted to the hospitalist for further management with surgery as a consult. Patient hemodynamically stable not in acute distress at time of admission to the hospital. Vital Signs Temperature 98.7 F 03/26/18 19:20 Pulse Rate 72 03/26/18 19:20 Respiratory Rate 18 03/26/18 19:20 Blood Pressure 149/82 03/26/18 19:20 O2 Sat by Pulse Oximetry 93 03/26/18 19:20 Temperature 98.7 F 03/26/18 19:20 Pulse Rate 85 03/26/18 21:19 Respiratory Rate 18 03/26/18 21:19 Blood Pressure 157/82 03/26/18 21:19 O2 Sat by Pulse Oximetry 96 03/26/18 21:19 Oxygen Delivery Oxygen Delivery Room Air Abdomen/Pelvis CT 03/26/18 19:28 IMPRESSION: Severe gaseous distention of the entire colon is favored to represent ileus over distal obstruction at the level of the lower rectum. No pneumatosis or pneumoperitoneum. Recent postsurgical changes in the right hip soft tissues with expected postsurgical gas. Fluid distention the stomach could be due to gastroparesis or could be from mass effect from distended colon. D/ / Remy Loaiza MD / Remy Loaiza MD Interpreting Provider: Remy Loaiza MD - Lab Data Result diagrams: 03/26/18 19:44 03/26/18 19:44 Lab Results 03/26/18 03/26/18 03/26/18 Range/Units 19:44 19:44 19:58 WBC 10.5 (4.3-11.1) K/mcL RBC 3.12 L (3.82-4.97) M/mcL Hgb 9.5 L (11.5-15.4) g/dL Hct 28.9 L (35.3-44.9) % MCV 92.6 (83.0-100.0) fL MCH 30.4 (28.0-33.3) pg MCHC 32.9 (31.6-35.5) g/dL RDW 13.3 (11.5-14.5) % Plt Count 207 D (140-400) K/mcL MPV 10.5 (9.4-12.4) fL Immature Gran % 0.8 (0-4) % Seg Neutrophils % 79.8 % Lymphocytes % 8.4 % Monocytes % 9.2 % Eosinophils % 1.4 % Basophils % 0.4 % Neutrophils # 8.4 (1.6-8.9) K/mcL Lymphocytes # 0.9 (0.6-4.6) K/mcL Monocytes # 1.0 (0.0-1.3) K/mcL Eosinophils # 0.2 (0.0-0.6) K/mcL Basophils # 0.0 (0.0-0.2) K/mcL Sodium 138 (136-145) mEq/L Potassium 2.9 L (3.5-5.1) mEq/L Chloride 102 (98-107) mEq/L Carbon Dioxide 27 (23-29) mEq/L BUN 36 H (8-23) mg/dL Creatinine 0.85 (0.60-1.20) mg/dL Est GFR ( Amer) > 60 (> 60) Est GFR (Non-Af Amer) > 60 (> 60) BUN/Creatinine Ratio 42 H (6-26) Glucose 133 H (70-105) mg/dL Calculated Osmolality 296 (280-300) Calcium 8.2 L (8.6-10.3) mg/dL Magnesium 2.2 (1.6-2.6) mg/dL Total Bilirubin 0.6 (0.3-1.0) mg/dL AST 21 (13-39) Units/L ALT 7 (7-52) Units/L Alkaline Phosphatase 79 (34-104) Units/L Troponin I < 0.03 (< 0.04) ng/mL Serum Total Protein 6.3 L (6.4-8.9) g/dL Albumin 3.2 L (3.5-5.7) g/dL Globulin 3.1 (2.4-3.5) g/dL Albumin/Globulin Ratio 1.0 L (1.1-2.2) Lipase 26 (11-82) Units/L TSH 4.063 (0.340-5.600) mcIU/mL Urine Color Yellow (Yellow) Urine Clarity Cloudy A (Clear) Urine pH 6.0 (5.0-8.0) pH Units Ur Specific [place] 1.021 (1.010-1.025) Urine Protein 30 H (Neg-Trace) mg/dL Urine Glucose (UA) Normal (Normal) mg/dL Urine Ketones Negative (Negative) mg/dL Urine Blood Negative (Negative) Urine Nitrite Negative (Negative) Urine Bilirubin Negative (Negative) Urine Urobilinogen Normal (Normal) mg/dL Ur Leukocyte Esterase Moderate H (Negative) Urine Microscopic WBC 5-15 H (0-3) per hpf Ur Squamous Epith Cells Many H (None-Few) per lpf Urine Bacteria None Seen (None-Few) per hpf Granular Casts Few H (None Seen) per lpf Ur Culture Indicated? NO. A (NO)
[2018-03-26] MEDS ORDERED: Isovue-370 500 ML INFUS..BTL IV ONE (19:28)
[2018-03-26 20:05] LABS: Bilirubin,Urine Negative (Negative); Blood,Urine Negative (Negative); Clarity,Urine Cloudy (Clear); Color,Urine Yellow (Yellow); Glucose,Urine (UA) Normal (Normal); Ketones,Urine Negative (Negative); Leukocyte Esterase,Urine Moderate (Negative); Nitrite,Urine Negative (Negative); Protein,Urine 30 mg/dL (Neg-Trace); Specific Gravity,Urine 1.021 (1.010-1.025); Urobilinogen,Urine Normal (Normal)
[2018-03-26 20:05] LABS: Basophils % 0.4 %; Eosinophils # 0.2 K/mcL (0.0-0.6); Eosinophils % 1.4 %; Hematocrit 28.9 % (35.3-44.9); Hemoglobin 9.5 g/dL (11.5-15.4); Immature Granulocytes % 0.8 % (0-4); Lymphocytes # 0.9 K/mcL (0.6-4.6); Lymphocytes % 8.4 %; Mean Corpuscular HGB Conc 32.9 g/dL (31.6-35.5); Mean Corpuscular Hemoglobin 30.4 pg (28.0-33.3); Mean Corpuscular Volume 92.6 fL (83.0-100.0); Mean Platelet Volume 10.5 fL (9.4-12.4); Monocytes % 9.2 %; Neutrophils # 8.4 K/mcL (1.6-8.9); Platelet Count 207 K/mcL (140-400); Red Blood Count 3.12 M/mcL (3.82-4.97); Red Cell Distribution Width 13.3 % (11.5-14.5); Segmented Neutrophils % 79.8 %
[2018-03-26 20:06] LABS: Bacteria,Urine None Seen per hpf (None-Few); Squamous Epithelial Cell,Urine Many per lpf (None-Few)
--- NOTE | 2018-03-26 20:07 | Emergency Department Note ---
START Narrative - START START: I examined this patient and my medical decision-making was reviewed with the Resident Physician. I agree with the documented findings, disposition and treatment plan as described except to the extent set forth below. 87-year-old female presents from a rehabilitation facility for possible bowel obstruction and altered mental status. Patient has a known history of dementia. She just underwent a right hemiarthroplasty for a femoral neck fracture a few days ago. She is been at this rehabilitation facility. They were concerned that her belly was getting distended and sent her to the ER. Patient is a very pleasant female and in no acute distress. She is denying any abdominal pain. Her vitals are stable. She is afebrile. We will check labs as well as urine and a CT scan to be sure she has no intra-abdominal process. She otherwise looks well. If her workup is unremarkable she will likely be discharged back to the rehabilitation facility.
[2018-03-26 20:22] LABS: Granular Casts,Urine Few per lpf (None Seen)
[2018-03-26 20:27] LABS: Alanine Aminotransferase 7 Units/L (7-52); Albumin 3.2 g/dL (3.5-5.7); Alkaline Phosphatase 79 Units/L (34-104); Aspartate Amino Transferase 21 Units/L (13-39); BUN/Creatinine Ratio 42 (6-26); Bilirubin,Total 0.6 mg/dL (0.3-1.0); Blood Urea Nitrogen 36 mg/dL (8-23); Calcium 8.2 mg/dL (8.6-10.3); Carbon Dioxide 27 mEq/L (23-29); Chloride 102 mEq/L (98-107); Globulin 3.1 g/dL (2.4-3.5); Glucose 133 mg/dL (70-105); Lipase 26 Units/L (11-82); Osmolality,Calculated 296 (280-300); Potassium 2.9 mEq/L (3.5-5.1); Sodium 138 mEq/L (136-145); Total Protein 6.3 g/dL (6.4-8.9); Troponin I < 0.03 ng/mL (< 0.04); eGFR For African Americans > 60 (> 60); eGFR For Non-African Americans > 60 (> 60)
[2018-03-26 20:40] LABS: Thyroid Stimulating Hormone 4.063 mcIU/mL (0.340-5.600)
[2018-03-26] MEDS ORDERED: *HR* FentaNYL (PF) 100 MCG/2 ML VIAL IVP ONE (21:03)
[2018-03-26] MEDS ORDERED: 0.9 % Sodium Chloride 1,000 ML IVC ONE (21:04)
[2018-03-26 21:20] LABS: Magnesium 2.2 mg/dL (1.6-2.6)
[2018-03-26] MEDS ORDERED: Milk and Molasses Enema 200 ML RC ONE (21:26)
[2018-03-26] MEDS ORDERED: Ondansetron 4 MG/2 ML VIAL IVP ONE (21:38)
[2018-03-26] MEDS ORDERED: 0.9 % Sodium Chloride 1,000 ML IVC SCH (21:45)
[2018-03-26] MEDS ORDERED: Naloxone 0.4 MG/ML INJ IVP PRN (23:40)
[2018-03-27] MEDS ORDERED: traMADol 50 MG TABLET PO PRN (00:21)
--- NOTE | 2018-03-27 00:39 | Internal Med History&Physical ---
Date of Encounter: 03/27/18 Time of Encounter: 00:36 Internal Medicine - H&P: HPI Admitted From: Emergency Dept History of present illness: Ms. Johnson is a 87 year old female patient with history of dementia, hyperlipidemia, hypertension who was just discharged from the hospital following right hip hemiarthroplasty after fracture presented to the ER from [facility] with complaints of abdominal distention. She was having abdominal pain but presently denies any pain. Patient unable to provide much history due to her history of dementia. Therefore history is been obtained through review of ED records. She has not been having any nausea or vomiting. Has not had a bowel movement since coming to the ER. Past Med Surg Social Fam HX - Past Medical History Source: old records reviewed Medical history: dementia, hyperlipidemia, hypertension, thyroid disease Additional medical history: right hip fracture Psychiatric history: anxiety, depression - Past Surgical History Additional surgical history: bilateral mastectomy - Social History Smoking Status: Unknown if ever smoked Smokeless Tobacco Status: No Alcohol use: none Drug use: none - Additional Family History Additional family history: Family history reviewed and found to be noncontributory at this time. Internal Medicine - H&P: Meds Levothyroxine [Synthroid] 175 mcg PO 0630 03/22/18 [History] Loratadine [Claritin] 10 mg PO DAILY 03/22/18 [History] Pravastatin Sodium [Pravachol] 20 mg PO HS 03/22/18 [History] Sertraline [Zoloft] 150 mg PO DAILY 03/22/18 [History] Docusate [Colace] 100 mg PO BID capsule 03/25/18 [Rx] Ferrous Sulfate 325 mg PO BIDWM tablet 03/25/18 [Rx] LORazepam [Ativan] 0.5 mg PO DAILY 5 Days #5 03/25/18 [Rx] Tramadol HCl [Ultram] 50 mg PO Q6H PRN 3 Days #5 tab 03/25/18 [Rx] 3 Allergy/AdvReac Type Severity Reaction Status Date / Time No Known Allergies Allergy Verified 07/07/16 11:48 ROS unobtainable: due to mental status (Dementia) All Systems PM: A 10-system review of systems was performed and is negative for pertinent findings except as documented above in the HPI. - Constitutional Constitutional: no chills, no fever(s), no night sweats - EENT Eyes: no change in vision, no discharge, no pain, no photophobia Ears: no ear discharge, no ear pain, no tinnitus Nose, mouth and throat: no dysphagia, no nasal discharge, no neck pain, no sore throat - Cardiovascular Cardiovascular ROS IM: no chest pain, no diaphoresis, no dyspnea, no lightheadedness, no palpitations, no syncope - Respiratory Respiratory: no cough, no dyspnea, no wheezing, no excessive phlegm production - Gastrointestinal Gastrointestinal: abdominal pain, no diarrhea, no hematemesis, no hematochezia, no melena, no nausea, no vomiting - Genitourinary Genitourinary: no change in urinary stream, no dysuria, no flank pain, no hematuria - Musculoskeletal Musculoskeletal ROS IM: no numbness, no tingling - Constitutional Vitals: Temp Pulse Resp BP Pulse Ox 98.7 F 82 20 159/109 95 03/26/18 19:20 03/26/18 22:42 03/26/18 23:39 03/26/18 23:39 03/26/18 22:42 General appearance: Present: cooperative, A&O X 1 - Neck Neck exam general surgery: Present: supple, trachea midline. Absent: lymphadenopathy - Respiratory Respiratory exam: Present: CTAB. Absent: accessory muscle use, rales, rhonchi, wheezes - Cardiovascular Cardiovascular exam: Present: RRR, +S1, +S2. Absent: diastolic murmur, gallop, rubs, systolic murmur - GI/Abdominal GI/Abdominal exam: Present: distended, normal bowel sounds, soft, no peritoneal signs. Absent: tenderness - Extremities Exam Extremities exam: Present: warm, radial pulses palpable and symmetrical. Absent : calf tenderness, cyanotic, pedal edema - Neurological Exam Neurological exam: Present: CN II-XII intact, oriented X3, no focal deficits. Absent: pronater drift, facial droop, speech deficit - Skin Skin exam: Present: dry, intact Internal Med - H&P Results - Labs CBC & Chem 7: 03/26/18 19:44 03/26/18 19:44 - Impressions Impressions Abdomen/Pelvis CT 03/26/18 19:28 IMPRESSION: Severe gaseous distention of the entire colon is favored to represent ileus over distal obstruction at the level of the lower rectum. No pneumatosis or pneumoperitoneum. Recent postsurgical changes in the right hip soft tissues with expected postsurgical gas. Fluid distention the stomach could be due to gastroparesis or could be from mass effect from distended colon. D/ / Remy Loaiza MD / Remy Loaiza MD Interpreting Provider: Remy Loaiza MD - Assessment and plan (1) Ileus Current Visit: Yes Status: Acute Assessment and plan: CT of the abdomen and pelvis shows possible ileus. Surgery has been consulted. Patient is currently not having nausea or vomiting. No indication for NG tube. We will follow surgery recommendations. Keep nothing by mouth for now. (2) Hypokalemia Current Visit: Yes Status: Acute Assessment and plan: We will replete (3) History of right hip hemiarthroplasty Current Visit: Yes Status: Acute Assessment and plan: Consult PTOT morning. Lovenox for DVT prophylaxis. (4) Anemia Current Visit: Yes Status: Chronic Assessment and plan: Hemoglobin 9.5. Stable since recent discharge from hospital. Qualifiers: Anemia type: other cause Other causes of anemia: acute posthemorrhagic Qualified Code(s): D62 - Acute posthemorrhagic anemia (5) Dementia Current Visit: No Status: Chronic Assessment and plan: Fall precautions. Monitor for delirium. Qualifiers: Dementia type: Alzheimer's disease Alzheimer's disease onset: late-onset Dementia behavioral disturbance: with behavioral disturbance Qualified Code(s) : 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 disease with late onset; F02.81 - Dementia in other diseases classified elsewhere with behavioral disturbance (6) Hypertension Current Visit: Yes Status: Chronic Assessment and plan: Uncontrolled. Continue home medications. We will also place patient on hydralazine IV as needed. Qualifiers: Hypertension type: essential hypertension Qualified Code(s): I10 - Essential (primary) hypertension (7) Hypothyroidism Current Visit: Yes Status: Chronic Assessment and plan: Continue levothyroxine Qualifiers: Hypothyroidism type: unspecified Qualified Code(s): E03.9 - Hypothyroidism , unspecified - Time Spent With Patient Total time spent is greater than 50% in coordination of care (as documented) at patient's floor/unit and/or counseling patient:
[2018-03-27 04:02] LABS: Basophils % 0.1 %; Eosinophils # 0.1 K/mcL (0.0-0.6); Eosinophils % 0.9 %; Hematocrit 25.6 % (35.3-44.9); Hemoglobin 8.3 g/dL (11.5-15.4); Immature Granulocytes % 0.8 % (0-4); Lymphocytes # 0.8 K/mcL (0.6-4.6); Lymphocytes % 7.4 %; Mean Corpuscular HGB Conc 32.4 g/dL (31.6-35.5); Mean Corpuscular Hemoglobin 30.7 pg (28.0-33.3); Mean Corpuscular Volume 94.8 fL (83.0-100.0); Mean Platelet Volume 10.3 fL (9.4-12.4); Monocytes # 1.1 K/mcL (0.0-1.3); Monocytes % 9.5 %; Neutrophils # 9.1 K/mcL (1.6-8.9); Platelet Count 163 K/mcL (140-400); Red Cell Distribution Width 13.5 % (11.5-14.5); Segmented Neutrophils % 81.3 %
[2018-03-27] MEDS: *HR* Enoxaparin 40 MG/0.4 ML SYRINGE SQ SCH (05:12)
[2018-03-27] MEDS: Ringers Solution, Lactated 1,000 ML IVC SCH ×2 (05:12→20:28)
[2018-03-27 05:21] LABS: BUN/Creatinine Ratio 50 (6-26); Blood Urea Nitrogen 36 mg/dL (8-23); Calcium 7.7 mg/dL (8.6-10.3); Carbon Dioxide 21 mEq/L (23-29); Chloride 109 mEq/L (98-107); Glucose 117 mg/dL (70-105); Osmolality,Calculated 299 (280-300); Potassium 3.5 mEq/L (3.5-5.1); Sodium 140 mEq/L (136-145); eGFR For African Americans > 60 (> 60); eGFR For Non-African Americans > 60 (> 60)
[2018-03-27] MEDS: Loratadine 10 MG TABLET PO SCH (08:17)
[2018-03-27] MEDS: *HR* LORazepam 0.5 MG TABLET PO SCH (08:17)
--- NOTE | 2018-03-27 09:15 | General Surgery Consult Note ---
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 can also repeat CT scan with PO contrast, but think barium enema would be most helpful will cont to follow History of Present Illness Consult date: 03/27/18 Reason for consult: other (abdominal distension) History of present illness: 87F PMH significant for dementia, hyperlipidemia, hypertension who is POD #4 s/ p R hemiarthroplasty 2/2 displaced right hip femoral neck fracture that is chronic who presents with signficant abdominal distension. There are no reports of pain and it is hard to ascertain when her last bowel movement or episode of flatus was. No reports of any abdominal injury from the operative report. A CT scan was obtained, which was reviewed and evaluated by me, which demonstrated significant dilatation of her colon, particularly her rectum; no evidence of pneumatosis or vascular compromise. Past Med Surg Social Fam HX - Past Medical History Medical history: dementia, hyperlipidemia, hypertension, thyroid disease Additional medical history: right hip fracture Psychiatric history: anxiety, depression - Past Surgical History Additional surgical history: bilateral mastectomy - Social History Smoking Status: Unknown if ever smoked Smokeless Tobacco Status: No Alcohol use: none Drug use: none - Additional Family History Additional family history: non contributory Medications and Allergies Levothyroxine [Synthroid] 175 mcg PO 0630 03/22/18 [History] Loratadine [Claritin] 10 mg PO DAILY 03/22/18 [History] Pravastatin Sodium [Pravachol] 20 mg PO HS 03/22/18 [History] Sertraline [Zoloft] 150 mg PO DAILY 03/22/18 [History] Docusate [Colace] 100 mg PO BID capsule 03/25/18 [Rx] Ferrous Sulfate 325 mg PO BIDWM tablet 03/25/18 [Rx] LORazepam [Ativan] 0.5 mg PO DAILY 5 Days #5 03/25/18 [Rx] Tramadol HCl [Ultram] 50 mg PO Q6H PRN 3 Days #5 tab 03/25/18 [Rx] 3 Allergy/AdvReac Type Severity Reaction Status Date / Time No Known Allergies Allergy Verified 07/07/16 11:48 Review of Systems All systems PM: The remainder of the systems were reviewed and are negative General Surgery Exam Initial Vital Signs Temp Pulse Resp BP Pulse Ox 98.7 F 72 18 149/82 93 03/26/18 19:20 03/26/18 19:20 03/26/18 19:20 03/26/18 19:20 03/26/18 19:20 - General physical appearance no distress - Eyes other (no scleral icterus) - ENT normocephalic - Neck no lymphadectomy - Respiratory normal expansion, normal respiratory effort - Cardiovascular Cardiovascular exam: Present: RRR - Abdomen Abdomen general surgery: Present: soft, distended (non tender; non peritoneal) - Integumentary Integumentary general surgery: Present: warm and dry - Neurologic Present: CN 2-12 grossly intact - Musculoskeletal Present: normal posture - Psychiatric Psychiatric general surgery: Present: appropriate Exam Initial Vital Signs Temp Pulse Resp BP Pulse Ox 98.7 F 72 18 149/82 93 03/26/18 19:20 03/26/18 19:20 03/26/18 19:20 03/26/18 19:20 03/26/18 19:20 Results - Labs 03/27/18 03:48 03/27/18 03:48 Abnormal lab results WBC 11.2 K/mcL (4.3-11.1) H 03/27/18 03:48 RBC 2.70 M/mcL (3.82-4.97) L 03/27/18 03:48 Hgb 8.3 g/dL (11.5-15.4) L 03/27/18 03:48 Hct 25.6 % (35.3-44.9) L 03/27/18 03:48 Neutrophils # 9.1 K/mcL (1.6-8.9) H 03/27/18 03:48 Chloride 109 mEq/L (98-107) H 03/27/18 03:48 Carbon Dioxide 21 mEq/L (23-29) L 03/27/18 03:48 BUN 36 mg/dL (8-23) H 03/27/18 03:48 BUN/Creatinine Ratio 50 (6-26) H 03/27/18 03:48 Glucose 117 mg/dL (70-105) H 03/27/18 03:48 Calcium 7.7 mg/dL (8.6-10.3) L 03/27/18 03:48 Serum Total Protein 6.3 g/dL (6.4-8.9) L 03/26/18 19:44 Albumin 3.2 g/dL (3.5-5.7) L 03/26/18 19:44 Albumin/Globulin Ratio 1.0 (1.1-2.2) L 03/26/18 19:44 Urine Clarity Cloudy (Clear) A 03/26/18 19:58 Urine Protein 30 mg/dL (Neg-Trace) H 03/26/18 19:58 Ur Leukocyte Esterase Moderate (Negative) H 03/26/18 19:58 Urine Microscopic WBC 5-15 per hpf (0-3) H 03/26/18 19:58 Ur Squamous Epith Cells Many per lpf (None-Few) H 03/26/18 19:58 Granular Casts Few per lpf (None Seen) H 03/26/18 19:58 Ur Culture Indicated? NO. (NO) A 03/26/18 19:58 Diabetes panel 03/27/18 Range/Units 03:48 Sodium 140 (136-145) mEq/L Potassium 3.5 (3.5-5.1) mEq/L Chloride 109 H (98-107) mEq/L Carbon Dioxide 21 L (23-29) mEq/L BUN 36 H (8-23) mg/dL Creatinine 0.72 (0.60-1.20) mg/dL Glucose 117 H (70-105) mg/dL Calcium 7.7 L (8.6-10.3) mg/dL Calcium panel 03/27/18 Range/Units 03:48 Calcium 7.7 L (8.6-10.3) mg/dL Pituitary panel 03/27/18 Range/Units 03:48 Sodium 140 (136-145) mEq/L Potassium 3.5 (3.5-5.1) mEq/L Chloride 109 H (98-107) mEq/L Carbon Dioxide 21 L (23-29) mEq/L BUN 36 H (8-23) mg/dL Creatinine 0.72 (0.60-1.20) mg/dL Glucose 117 H (70-105) mg/dL Calcium 7.7 L (8.6-10.3) mg/dL Adrenal panel 03/27/18 Range/Units 03:48 Sodium 140 (136-145) mEq/L Potassium 3.5 (3.5-5.1) mEq/L Chloride 109 H (98-107) mEq/L Carbon Dioxide 21 L (23-29) mEq/L BUN 36 H (8-23) mg/dL Creatinine 0.72 (0.60-1.20) mg/dL Glucose 117 H (70-105) mg/dL Calcium 7.7 L (8.6-10.3) mg/dL All other labs normal. - Imaging CT scan - abdomen: report reviewed, image reviewed CT scan - pelvis: report reviewed, image reviewed Consult Discharge Plan - Plan Referrals: NONE,PCP [Primary Care Provider] -
--- NOTE | 2018-03-27 13:59 | Event Note ---
Date of Encounter: 03/27/18 Time of Encounter: 13:53 S: Patient had no acute events overnight. She is in good spirits. She denies any nausea, vomiting, or abdominal pain. She denies fever, chills, chest pain, and SOB. She has no complaints at this time. O: Gen - Awake, alert, well-nourished, no acute distress HEENT - NCAT, PERRLA, EOMI, hearing grossly intact, oropharynx benign CV - RRR, normal S1 and S2, no M/R/G, no BLE edema Resp - Normal WOB, CTAB, no W/R/R GI - Soft, mildly distended, non-tender, hypoactive bowel sounds, no HSP Skin - Warm, dry, no rashes/lesions/ulcers Psych - Normal mood and affect, no depression or anxiety A/P: 1) Post-operative Ileus - NPO for bowel rest. No N/V, so no indication for NG tube. Surgery consulted; appreciate input. Barium enema pending per their recommendations. No opioids. Replete electrolytes as necessary. Recheck labwork in AM.
[2018-03-27] MEDS: Simethicone 80 MG TAB.CHEW PO SCH ×2 (18:10→22:49)
[2018-03-27] MEDS: Acetaminophen 325 MG TABLET PO PRN (20:26)
[2018-03-28] MEDS: *HR* Enoxaparin 40 MG/0.4 ML SYRINGE SQ SCH (05:02)
[2018-03-28] MEDS: Simethicone 80 MG TAB.CHEW PO SCH ×4 (05:02→23:42)
[2018-03-28] MEDS: Acetaminophen 325 MG TABLET PO PRN ×3 (05:03→23:42)
[2018-03-28] MEDS: Loratadine 10 MG TABLET PO SCH (07:32)
[2018-03-28] MEDS: *HR* LORazepam 0.5 MG TABLET PO SCH (07:32)
[2018-03-28 09:48] LABS: Basophils % 0.4 %; Eosinophils # 0.2 K/mcL (0.0-0.6); Eosinophils % 2.2 %; Hematocrit 23.6 % (35.3-44.9); Immature Granulocytes % 1.2 % (0-4); Lymphocytes # 0.9 K/mcL (0.6-4.6); Lymphocytes % 13.6 %; Mean Corpuscular HGB Conc 32.6 g/dL (31.6-35.5); Mean Corpuscular Hemoglobin 31.7 pg (28.0-33.3); Mean Corpuscular Volume 97.1 fL (83.0-100.0); Mean Platelet Volume 9.8 fL (9.4-12.4); Monocytes # 0.6 K/mcL (0.0-1.3); Monocytes % 8.6 %; Platelet Count 191 K/mcL (140-400); Red Blood Count 2.43 M/mcL (3.82-4.97); Red Cell Distribution Width 13.5 % (11.5-14.5)
[2018-03-28 09:49] LABS: BUN/Creatinine Ratio 40 (6-26); Blood Urea Nitrogen 23 mg/dL (8-23); Calcium 7.6 mg/dL (8.6-10.3); Carbon Dioxide 26 mEq/L (23-29); Chloride 111 mEq/L (98-107); Glucose 92 mg/dL (70-105); Osmolality,Calculated 301 (280-300); Potassium 3.1 mEq/L (3.5-5.1); Sodium 144 mEq/L (136-145); eGFR For African Americans > 60 (> 60); eGFR For Non-African Americans > 60 (> 60)
--- NOTE | 2018-03-28 09:49 | Internal Med Progress Note ---
Date of Encounter: 03/28/18 Time of Encounter: 09:47 - Assessment and plan (1) Ileus Current Visit: Yes Status: Acute Assessment and plan: CT of the abdomen and pelvis shows possible ileus. Barium enema showed no obstruction, just dilated sigmoid colon. General surgery consulted; appreciate input. Patient is currently not having nausea or vomiting. No abdominal pain except with deep palpation. No indication for NG tube at this time. We will follow surgery recommendations. Keep NPO for bowel rest. Start IV NS at 75 ml/ hr. Avoid opioids. Replete electrolytes as necessary. Trial of chewing gum. Recheck labwork in AM. (2) Acute cystitis without hematuria Current Visit: Yes Status: Acute Assessment and plan: Obtain urine culture. Start rocephin 1 gram IVPB QD. (3) Hypokalemia Current Visit: Yes Status: Acute Assessment and plan: Give 40 mEq IV now. Recheck BMP and magnesium in AM. (4) History of right hip hemiarthroplasty Current Visit: Yes Status: Chronic Assessment and plan: PT/OT consulted. Lovenox for DVT prophylaxis. Follow up with orthopedics outpatient. (5) Dementia Current Visit: Yes Status: Chronic Assessment and plan: Fall precautions. Monitor for delirium. Qualifiers: Dementia type: Alzheimer's disease Alzheimer's disease onset: late-onset Dementia behavioral disturbance: with behavioral disturbance Qualified Code(s) : 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 disease with late onset; F02.81 - Dementia in other diseases classified elsewhere with behavioral disturbance (6) Hypertension Current Visit: Yes Status: Chronic Assessment and plan: Uncontrolled. Continue home medications. Continue PRN hydralazine. Qualifiers: Hypertension type: essential hypertension Qualified Code(s): I10 - Essential (primary) hypertension (7) Hypothyroidism Current Visit: Yes Status: Chronic Assessment and plan: Continue levothyroxine. Qualifiers: Hypothyroidism type: unspecified Qualified Code(s): E03.9 - Hypothyroidism , unspecified (8) Anemia Current Visit: Yes Status: Chronic Assessment and plan: Hemoglobin down slightly today. Recheck CBC in AM. Transfuse for hemoglobin less than 7.0 and/or symptomatic. Qualifiers: Anemia type: other cause Other causes of anemia: acute posthemorrhagic Qualified Code(s): D62 - Acute posthemorrhagic anemia (9) DVT prophylaxis Current Visit: Yes Status: Acute Assessment and plan: Continue SQ lovenox. - Time Spent With Patient Total time spent is greater than 50% in coordination of care (as documented) at patient's floor/unit and/or counseling patient: less than 15 minutes - Subjective Interval history: Patient had no acute events overnight. She states that she is doing "good" today. She denies fever, chills, chest pain, SOB, abdominal pain, nausea, and vomiting. She has no complaints at this time. - Constitutional Vitals: Temp Pulse Resp BP Pulse Ox 97.6 F 61 18 190/81 97 03/28/18 07:56 03/28/18 07:56 03/28/18 07:56 03/28/18 07:56 03/28/18 07:56 General appearance: Present: cooperative, A&O X 1, pleasant, no acute distress, answers questions appropriately - Respiratory Respiratory exam: Present: CTAB. Absent: accessory muscle use, rales, rhonchi, wheezes Additional comments: Normal WOB - Cardiovascular Cardiovascular exam: Present: RRR, +S1, +S2. Absent: diastolic murmur, gallop, rubs, systolic murmur Additional comments: No BLE edema - GI/Abdominal GI/Abdominal exam: Present: hypoactive bowel sounds, soft, tenderness (mild TTP diffusely across abdomen). Absent: distended, hepatomegaly, mass, splenomegaly - Psychiatric Psychiatric exam: Present: normal affect, normal mood. Absent: agitated, anxious, depressed - Skin Skin exam: Present: dry, intact, warm. Absent: cyanosis, rash Internal Medicine: Result - Labs CBC & Chem 7: 03/27/18 03:48 03/27/18 03:48 Consult Discharge Plan - Plan Referrals: NONE,PCP [Primary Care Provider] -
[2018-03-28 09:51] LABS: Hemoglobin 7.7 g/dL (11.5-15.4)
[2018-03-28] MEDS ORDERED: Potassium Chloride 40 MEQ, Lidocaine 1% 2 ML in D5% in Water 500 ML IVPB ONE (09:54)
[2018-03-28] MEDS: 0.9 % Sodium Chloride 1,000 ML IVC SCH (09:58)
[2018-03-28] MEDS: cefTRIAXone 1,000 MG in Water for inj. (sterile) 20 ML 10 ML IVP SCH (09:58)
[2018-03-29 03:08] LABS: Basophils % 0.3 %; Eosinophils # 0.2 K/mcL (0.0-0.6); Eosinophils % 2.3 %; Hematocrit 21.2 % (35.3-44.9); Hemoglobin 6.9 g/dL (11.5-15.4); Immature Platelets 1.7 % (1.1-6.1); Lymphocytes # 1.2 K/mcL (0.6-4.6); Lymphocytes % 17.8 %; Mean Corpuscular HGB Conc 32.5 g/dL (31.6-35.5); Mean Corpuscular Hemoglobin 31.2 pg (28.0-33.3); Mean Corpuscular Volume 95.9 fL (83.0-100.0); Mean Platelet Volume 9.7 fL (9.4-12.4); Monocytes # 0.6 K/mcL (0.0-1.3); Monocytes % 9.1 %; Neutrophils # 4.7 K/mcL (1.6-8.9); Nucleated Red Blood Cells 0.3 /100 WBC (0); Platelet Count 228 K/mcL (140-400); Red Blood Count 2.21 M/mcL (3.82-4.97); Red Cell Distribution Width 13.5 % (11.5-14.5); Segmented Neutrophils % 68.5 %
[2018-03-29 03:56] LABS: BUN/Creatinine Ratio 33 (6-26); Blood Urea Nitrogen 19 mg/dL (8-23); Calcium 7.2 mg/dL (8.6-10.3); Carbon Dioxide 28 mEq/L (23-29); Chloride 108 mEq/L (98-107); Glucose 83 mg/dL (70-105); Osmolality,Calculated 293 (280-300); Sodium 141 mEq/L (136-145); eGFR For African Americans > 60 (> 60); eGFR For Non-African Americans > 60 (> 60)
[2018-03-29] MEDS: *HR* Enoxaparin 40 MG/0.4 ML SYRINGE SQ SCH (05:52)
[2018-03-29] MEDS ORDERED: Potassium Chloride 40 MEQ, Lidocaine 1% 2 ML in D5% in Water 500 ML IVPB ONE (06:00)
[2018-03-29] MEDS: Acetaminophen 325 MG TABLET PO PRN (06:51)
[2018-03-29] MEDS: Simethicone 80 MG TAB.CHEW PO SCH ×4 (06:51→18:19)
[2018-03-29] MEDS: 0.9 % Sodium Chloride 1,000 ML IVC SCH (09:27)
[2018-03-29] MEDS: Loratadine 10 MG TABLET PO SCH (09:28)
[2018-03-29] MEDS: *HR* LORazepam 0.5 MG TABLET PO SCH (09:29)
[2018-03-29] MEDS: cefTRIAXone 1,000 MG in Water for inj. (sterile) 20 ML 10 ML IVP SCH ×2 (09:29→15:42)
--- NOTE | 2018-03-29 10:00 | Internal Med Progress Note ---
Date of Encounter: 03/29/18 Time of Encounter: 09:57 - Assessment and plan (1) Ileus Current Visit: Yes Status: Acute Assessment and plan: CT of the abdomen and pelvis shows possible ileus. Barium enema showed no obstruction, just dilated sigmoid colon. General surgery consulted; appreciate input. Patient is currently not having nausea or vomiting. No abdominal pain. No indication for NG tube at this time. We will follow surgery recommendations. Keep NPO for bowel rest. Continue IV NS. Avoid opioids. Replete electrolytes as necessary. Trial of chewing gum. Recheck labwork in AM. (2) Acute cystitis without hematuria Current Visit: Yes Status: Acute Assessment and plan: Follow up urine culture. Continue rocephin 1 gram IVPB QD. (3) Anemia Current Visit: Yes Status: Acute Assessment and plan: Hemoglobin down to 6.9 this AM. Transfusion of 1 unit PRBC ordered; check 2- hour post-transfusion H/H. Hemoccult pending. Added IV protonix. Continue ferrous sulfate. Consider holding lovenox if hemoglobin continues to drop. Recheck CBC in AM. Qualifiers: Anemia type: other cause Other causes of anemia: acute posthemorrhagic Qualified Code(s): D62 - Acute posthemorrhagic anemia (4) Hypokalemia Current Visit: Yes Status: Acute Assessment and plan: Given 40 mEq IV this AM. Recheck BMP in AM. (5) History of right hip hemiarthroplasty Current Visit: Yes Status: Chronic Assessment and plan: PT/OT consulted. Lovenox for DVT prophylaxis. Follow up with orthopedics outpatient. (6) Dementia Current Visit: Yes Status: Chronic Assessment and plan: Fall precautions. Monitor for delirium. Qualifiers: Dementia type: Alzheimer's disease Alzheimer's disease onset: late-onset Dementia behavioral disturbance: with behavioral disturbance Qualified Code(s) : 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 disease with late onset; F02.81 - Dementia in other diseases classified elsewhere with behavioral disturbance (7) Hypertension Current Visit: Yes Status: Chronic Assessment and plan: Uncontrolled. Improved today. Continue home medications. Continue PRN hydralazine. Qualifiers: Hypertension type: essential hypertension Qualified Code(s): I10 - Essential (primary) hypertension (8) Hypothyroidism Current Visit: Yes Status: Chronic Assessment and plan: Continue levothyroxine. Qualifiers: Hypothyroidism type: unspecified Qualified Code(s): E03.9 - Hypothyroidism , unspecified (9) DVT prophylaxis Current Visit: Yes Status: Acute Assessment and plan: Continue SQ lovenox. - Time Spent With Patient Total time spent is greater than 50% in coordination of care (as documented) at patient's floor/unit and/or counseling patient: less than 15 minutes - Subjective Interval history: Patient had no acute events overnight. She states that she is doing "good" today. Nursing staff reports loss of IV access. She denies fever, chills, chest pain, SOB, abdominal pain, nausea, and vomiting. She has no complaints at this time. - Constitutional Vitals: Temp Pulse Resp BP Pulse Ox 98.1 F 71 17 147/78 94 03/29/18 07:06 03/29/18 07:06 03/29/18 07:06 03/29/18 07:06 03/29/18 07:06 General appearance: Present: cooperative, A&O X 1, pleasant, no acute distress, answers questions appropriately - Respiratory Respiratory exam: Present: CTAB. Absent: accessory muscle use, rales, rhonchi, wheezes Additional comments: Normal WOB - Cardiovascular Cardiovascular exam: Present: RRR, +S1, +S2. Absent: diastolic murmur, gallop, rubs, systolic murmur Additional comments: No BLE edema - GI/Abdominal GI/Abdominal exam: Present: distended (Mild), hypoactive bowel sounds, soft. Absent: hepatomegaly, mass, splenomegaly, tenderness - Psychiatric Psychiatric exam: Present: normal affect, normal mood. Absent: agitated, anxious, depressed - Skin Skin exam: Present: dry, intact, warm. Absent: cyanosis, rash Internal Medicine: Result - Labs CBC & Chem 7: 03/29/18 02:03 03/29/18 02:03 Labs: Short CBC 03/29/18 Range/Units 02:03 WBC 6.9 (4.3-11.1) K/mcL Hgb 6.9 L (11.5-15.4) g/dL Hct 21.2 L (35.3-44.9) % Plt Count 228 (140-400) K/mcL Neutrophils # 4.7 (1.6-8.9) K/mcL BMP 03/29/18 02:03 Sodium 141 Potassium 3.0 L Chloride 108 H Carbon Dioxide 28 BUN 19 Creatinine 0.57 L Glucose 83 Calcium 7.2 L Consult Discharge Plan - Plan Referrals: NONE,PCP [Primary Care Provider] -
[2018-03-29] MEDS ORDERED: 0.9 % Sodium Chloride 250 ML ONE (12:57)
[2018-03-29] MEDS: Pantoprazole 40 MG VIAL IVP SCH (15:51)
[2018-03-29 19:45] LABS: Hematocrit 26.2 % (35.3-44.9); Hemoglobin 9.4 g/dL (11.5-15.4)
[2018-03-30] MEDS: Simethicone 80 MG TAB.CHEW PO SCH ×6 (05:39→20:53)
[2018-03-30] MEDS: 0.9 % Sodium Chloride 1,000 ML IVC SCH ×2 (06:57→20:43)
[2018-03-30 07:30] LABS: Basophils % 0.4 %; Eosinophils # 0.2 K/mcL (0.0-0.6); Eosinophils % 2.8 %; Hematocrit 25.9 % (35.3-44.9); Hemoglobin 8.8 g/dL (11.5-15.4); Lymphocytes # 0.9 K/mcL (0.6-4.6); Lymphocytes % 11.7 %; Mean Corpuscular Hemoglobin 31.3 pg (28.0-33.3); Mean Corpuscular Volume 92.2 fL (83.0-100.0); Mean Platelet Volume 9.2 fL (9.4-12.4); Monocytes # 0.7 K/mcL (0.0-1.3); Monocytes % 8.4 %; Neutrophils # 5.6 K/mcL (1.6-8.9); Nucleated Red Blood Cells 0.3 /100 WBC (0); Platelet Count 212 K/mcL (140-400); Red Blood Count 2.81 M/mcL (3.82-4.97); Red Cell Distribution Width 13.7 % (11.5-14.5); Segmented Neutrophils % 71.7 %
[2018-03-30 07:33] LABS: BUN/Creatinine Ratio 26 (6-26); Blood Urea Nitrogen 12 mg/dL (8-23); Carbon Dioxide 26 mEq/L (23-29); Chloride 105 mEq/L (98-107); Glucose 88 mg/dL (70-105); Osmolality,Calculated 283 (280-300); Potassium 2.9 mEq/L (3.5-5.1); Sodium 137 mEq/L (136-145); eGFR For African Americans > 60 (> 60); eGFR For Non-African Americans > 60 (> 60)
[2018-03-30] MEDS ORDERED: Potassium Chloride 40 MEQ, Lidocaine 1% 2 ML in D5% in Water 500 ML IVPB ONE (08:21)
--- NOTE | 2018-03-30 08:29 | Internal Med Progress Note ---
Date of Encounter: 03/30/18 Time of Encounter: 08:27 - Assessment and plan (1) Ileus Current Visit: Yes Status: Acute Assessment and plan: CT of the abdomen and pelvis shows possible ileus. Barium enema showed no obstruction, just dilated sigmoid colon. General surgery consulted; appreciate input. Patient is currently not having nausea or vomiting. No abdominal pain except with deep palpation. Still with moderate abdominal distension. No indication for NG tube at this time. We will follow surgery recommendations. Keep NPO for bowel rest. Continue IV NS. Avoid opioids. Replete electrolytes as necessary. Trial of chewing gum. Recheck labwork in AM. (2) Acute cystitis without hematuria Current Visit: Yes Status: Acute Assessment and plan: Follow up urine culture. Continue rocephin 1 gram IVPB QD. (3) Anemia Current Visit: Yes Status: Acute Assessment and plan: Hemoglobin 8.8 this AM s/p transfusion of 1 unit PRBC yesterday. Hemoccult pending. Continue IV protonix. Continue ferrous sulfate. Consider holding lovenox if hemoglobin continues to drop. Recheck CBC in AM. Qualifiers: Anemia type: other cause Other causes of anemia: acute posthemorrhagic Qualified Code(s): D62 - Acute posthemorrhagic anemia (4) Hypokalemia Current Visit: Yes Status: Acute Assessment and plan: Give 40 mEq PO KCl and 40 mEq IV KCl this AM. Recheck BMP in AM. (5) History of right hip hemiarthroplasty Current Visit: Yes Status: Chronic Assessment and plan: PT/OT consulted. Lovenox for DVT prophylaxis. Follow up with orthopedics outpatient. (6) Dementia Current Visit: Yes Status: Chronic Assessment and plan: Fall precautions. Monitor for delirium. Qualifiers: Dementia type: Alzheimer's disease Alzheimer's disease onset: late-onset Dementia behavioral disturbance: with behavioral disturbance Qualified Code(s) : 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 disease with late onset; F02.81 - Dementia in other diseases classified elsewhere with behavioral disturbance (7) Hypertension Current Visit: Yes Status: Chronic Assessment and plan: Uncontrolled. Improved today. Continue home medications. Continue PRN hydralazine. Qualifiers: Hypertension type: essential hypertension Qualified Code(s): I10 - Essential (primary) hypertension (8) Hypothyroidism Current Visit: Yes Status: Chronic Assessment and plan: Continue levothyroxine. Qualifiers: Hypothyroidism type: unspecified Qualified Code(s): E03.9 - Hypothyroidism , unspecified (9) DVT prophylaxis Current Visit: Yes Status: Acute Assessment and plan: Continue SQ lovenox. - Time Spent With Patient Total time spent is greater than 50% in coordination of care (as documented) at patient's floor/unit and/or counseling patient: less than 15 minutes - Subjective Interval history: Patient had no acute events overnight. She states that she is doing "good" today. She is sitting up in chair today. She still has some abdominal distension. She denies fever, chills, chest pain, SOB, abdominal pain, nausea, and vomiting. She has no complaints at this time. - Constitutional Vitals: Temp Pulse Resp BP Pulse Ox 98.5 F 78 18 165/97 94 03/30/18 06:58 03/30/18 06:58 03/30/18 06:58 03/30/18 06:58 03/30/18 06:58 General appearance: Present: cooperative, A&O X 1, pleasant, no acute distress, answers questions appropriately - Respiratory Respiratory exam: Present: CTAB. Absent: accessory muscle use, rales, rhonchi, wheezes Additional comments: Normal WOB - Cardiovascular Cardiovascular exam: Present: RRR, +S1, +S2. Absent: diastolic murmur, gallop, rubs, systolic murmur Additional comments: No BLE edema - GI/Abdominal GI/Abdominal exam: Present: distended (moderate), hypoactive bowel sounds, soft , tenderness (mild TTP diffusely across abdomen). Absent: hepatomegaly, mass, splenomegaly - Psychiatric Psychiatric exam: Present: normal affect, normal mood. Absent: agitated, anxious, depressed - Skin Skin exam: Present: dry, intact, warm. Absent: cyanosis, rash Internal Medicine: Result - Labs CBC & Chem 7: 03/30/18 06:55 03/30/18 06:55 Labs: Short CBC 03/29/18 03/30/18 Range/Units 19:31 06:55 WBC 7.8 (4.3-11.1) K/mcL Hgb 9.4 L D 8.8 L (11.5-15.4) g/dL Hct 26.2 L 25.9 L (35.3-44.9) % Plt Count 212 (140-400) K/mcL Neutrophils # 5.6 (1.6-8.9) K/mcL BMP 03/30/18 06:55 Sodium 137 Potassium 2.9 L Chloride 105 Carbon Dioxide 26 BUN 12 Creatinine 0.47 L Glucose 88 Calcium 7.0 L Consult Discharge Plan - Plan Referrals: NONE,PCP [Primary Care Provider] -
[2018-03-30] MEDS: Loratadine 10 MG TABLET PO SCH (08:42)
[2018-03-30] MEDS: *HR* Enoxaparin 40 MG/0.4 ML SYRINGE SQ SCH (08:42)
[2018-03-30] MEDS: *HR* LORazepam 0.5 MG TABLET PO SCH (08:42)
[2018-03-30] MEDS: Pantoprazole 40 MG VIAL IVP SCH (08:43)
[2018-03-30] MEDS: cefTRIAXone 1,000 MG in Water for inj. (sterile) 20 ML 10 ML IVP SCH (08:44)
[2018-03-30] MEDS ORDERED: *HR* LORazepam 0.5 MG TABLET PO ONE (22:28)
[2018-03-30] MEDS ORDERED: Haloperidol Lactate 5 MG/ML VIAL IVP ONE (23:19)
[2018-03-31] MEDS ORDERED: *HR* LORazepam 2 MG/ML VIAL IVP ONE (00:55)
[2018-03-31] MEDS: *HR* Enoxaparin 40 MG/0.4 ML SYRINGE SQ SCH (07:01)
[2018-03-31 07:10] LABS: Eosinophils # 0.2 K/mcL (0.0-0.6); Hematocrit 26.8 % (35.3-44.9); Hemoglobin 9.3 g/dL (11.5-15.4); Mean Corpuscular HGB Conc 34.7 g/dL (31.6-35.5); Mean Corpuscular Volume 92.1 fL (83.0-100.0); Mean Platelet Volume 8.9 fL (9.4-12.4); Platelet Count 218 K/mcL (140-400); Red Blood Count 2.91 M/mcL (3.82-4.97)
[2018-03-31 07:27] LABS: BUN/Creatinine Ratio 18 (6-26); Blood Urea Nitrogen 9 mg/dL (8-23); Carbon Dioxide 22 mEq/L (23-29); Chloride 106 mEq/L (98-107); Glucose 85 mg/dL (70-105); Magnesium 1.4 mg/dL (1.6-2.6); Osmolality,Calculated 284 (280-300); Phosphorous 2.1 mg/dL (2.7-4.5); Potassium 2.8 mEq/L (3.5-5.1); Sodium 138 mEq/L (136-145); eGFR For African Americans > 60 (> 60); eGFR For Non-African Americans > 60 (> 60)
[2018-03-31] MEDS: cefTRIAXone 1,000 MG in Water for inj. (sterile) 20 ML 10 ML IVP SCH (08:53)
[2018-03-31] MEDS: Pantoprazole 40 MG VIAL IVP SCH (08:54)
[2018-03-31] MEDS: Loratadine 10 MG TABLET PO SCH (09:00)
[2018-03-31] MEDS: *HR* LORazepam 0.5 MG TABLET PO SCH (09:00)
[2018-03-31] MEDS: Simethicone 80 MG TAB.CHEW PO SCH ×4 (09:06→22:09)
[2018-03-31] MEDS: 0.9 % Sodium Chloride 1,000 ML IVC SCH (09:49)
[2018-03-31] MEDS ORDERED: Potassium Chloride 40 MEQ, Lidocaine 1% 2 ML in D5% in Water 500 ML IVPB ONE ×2 (10:14→17:44)
--- NOTE | 2018-03-31 10:22 | General Surgery Progress Note ---
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 87F s/p R hip arthroplasty who presents with findings consistent with fredy's syndrome; currently with soft, non distended abdomen; diet as tolerated per primary team no acute surgery general surgery will sign off; please call with any questions or new concerns Subjective Patient reports: no new complaints, feels better Objective Vital Signs - Last 8 Hours Temp Pulse Resp BP Pulse Ox 03/31/18 08:52 146/86 03/31/18 06:32 98.2 F 90 18 162/106 94 Intake and Output 03/30/18 03/31/18 03/31/18 23:59 07:59 15:59 Intake Total 1000 / 1000 1000 / 1000 Balance 1000 / 1000 1000 / 1000 Intake: IV Fluids 1000 / 1000 1000 / 1000 0.9 % Sodium Chloride 1,000 ML 1000 / 1000 1000 / 1000 @ 75 mls/hr IVC .[id number] HOLLY Rx #:[id number] Other: # Urine Diapers 1 1 Weight 63.5 kg 63.5 kg Blood Glucose* 95 Patient Weight 03/31/18 23:59 Weight 63.5 kg - General physical appearance no distress - Respiratory normal expansion, normal respiratory effort - Cardiovascular Cardiovascular exam: Present: RRR - Abdomen Abdomen: Present: soft, non tender - Neurologic CN 2-12 grossly intact - Labs 03/31/18 04:00 03/31/18 04:00 Diabetes panel 03/31/18 Range/Units 04:00 Sodium 138 (136-145) mEq/L Potassium 2.8 L (3.5-5.1) mEq/L Chloride 106 (98-107) mEq/L Carbon Dioxide 22 L (23-29) mEq/L BUN 9 (8-23) mg/dL Creatinine 0.49 L (0.60-1.20) mg/dL Glucose 85 (70-105) mg/dL Calcium 7.0 L (8.6-10.3) mg/dL Calcium panel 03/31/18 Range/Units 04:00 Calcium 7.0 L (8.6-10.3) mg/dL Phosphorus 2.1 L (2.7-4.5) mg/dL Pituitary panel 03/31/18 Range/Units 04:00 Sodium 138 (136-145) mEq/L Potassium 2.8 L (3.5-5.1) mEq/L Chloride 106 (98-107) mEq/L Carbon Dioxide 22 L (23-29) mEq/L BUN 9 (8-23) mg/dL Creatinine 0.49 L (0.60-1.20) mg/dL Glucose 85 (70-105) mg/dL Calcium 7.0 L (8.6-10.3) mg/dL Adrenal panel 03/31/18 Range/Units 04:00 Sodium 138 (136-145) mEq/L Potassium 2.8 L (3.5-5.1) mEq/L Chloride 106 (98-107) mEq/L Carbon Dioxide 22 L (23-29) mEq/L BUN 9 (8-23) mg/dL Creatinine 0.49 L (0.60-1.20) mg/dL Glucose 85 (70-105) mg/dL Calcium 7.0 L (8.6-10.3) mg/dL Consult Discharge Plan - Plan Referrals: NONE,PCP [Primary Care Provider] -
[2018-03-31 13:07] LABS: Lymphocytes # 1.4 K/mcL (0.6-4.6); Monocytes # 0.3 K/mcL (0.0-1.3)
[2018-03-31 13:08] LABS: Platelet Estimate Normal (Normal)
--- NOTE | 2018-03-31 14:59 | Internal Med Progress Note ---
Date of Encounter: 03/31/18 Time of Encounter: 12:30 - Assessment and plan (1) Ileus Current Visit: Yes Status: Acute Assessment and plan: CT of the abdomen and pelvis showed possible ileus. Barium enema showed no obstruction, just dilated sigmoid colon. General surgery consulted. No nausea or vomiting. Pt. reports abdominal pain improving. KUB today shows no evidence of bowel obstruction. Contrast is observed in the colon from a prior study. Diverticulosis incidentally noted. Surgery sign-off w/recommendation to begin clear liquid diet and advance as tolerated. Appreciate the consult. Continue IV NS @ 75 mL/HR. Avoid opioids. Electrolyte replacement and monitoring. Monitor pt. and f/u labs. (2) Acute cystitis without hematuria Current Visit: Yes Status: Acute Assessment and plan: UA negative for UTI. Rocephin DCd. WBC 8.1. Pt. is afebrile and asymptomatic for infection. Monitor. (3) Electrolyte imbalance Current Visit: Yes Status: Acute Assessment and plan: Acute electrolyte imbalance w/potassium of 2.8, calcium of 7.0, magnesium of 1.4 , and phosphorus of 2.1 today. Potassium 40 mEq IVPB once. Magnesium sulfate 2 g IVPB once. Calcium carbonate PO 1,000 mg TID. Will monitor all electrolytes for 04:00 and re-check phosphorus. Add continuous cardiac telemetry. Monitor pt. and f/u labs. (4) Anemia Current Visit: Yes Status: Acute Assessment and plan: Hemoglobin 8.8 s/p transfusion of 1 unit PRBC yesterday. Today 9.3. Hemoccult negative. Continue IV protonix. Continue ferrous sulfate. Consider holding lovenox if hemoglobin continues to drop. Recheck CBC and H/H in AM. Qualifiers: Anemia type: other cause Other causes of anemia: acute posthemorrhagic Qualified Code(s): D62 - Acute posthemorrhagic anemia (5) Dementia Current Visit: Yes Status: Chronic Assessment and plan: Fall precautions and up with assist daily. Monitor for delirium and/or agitation. Qualifiers: Dementia type: Alzheimer's disease Alzheimer's disease onset: late-onset Dementia behavioral disturbance: with behavioral disturbance Qualified Code(s) : 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 disease with late onset; F02.81 - Dementia in other diseases classified elsewhere with behavioral disturbance (6) Hypertension Current Visit: Yes Status: Chronic Assessment and plan: Uncontrolled. 154/79 today. Continue home medications and PRN hydralazine. Monitor pt. and VS. Qualifiers: Hypertension type: essential hypertension Qualified Code(s): I10 - Essential (primary) hypertension (7) Hypothyroidism Current Visit: Yes Status: Chronic Assessment and plan: Continue pts. levothyroxine. Qualifiers: Hypothyroidism type: unspecified Qualified Code(s): E03.9 - Hypothyroidism , unspecified (8) History of right hip hemiarthroplasty Current Visit: Yes Status: Chronic Assessment and plan: PT/OT consulted. Follow up with orthopedics on outpatient basis. (9) DVT prophylaxis Current Visit: Yes Status: Acute Assessment and plan: Continue SQ lovenox. Monitor for signs of bleeding. - Time Spent With Patient Total time spent is greater than 50% in coordination of care (as documented) at patient's floor/unit and/or counseling patient: - Subjective Interval history: Pt. reports that she is feeling better today. Sitting up in chair during examination. States that her abdominal pain is getting better. Reports last BM was on . Denies nausea, vomiting, fever, chills, CP, SOB, diarrhea, or worsening pain. - Constitutional Vitals: Temp Pulse Resp BP Pulse Ox 97.9 F 88 19 154/79 95 03/31/18 12:00 03/31/18 12:00 03/31/18 12:00 03/31/18 12:00 03/31/18 12:00 General appearance: Present: cooperative, A&O X 1, pleasant, no acute distress, answers questions appropriately - Head Head exam: Present: atraumatic, normocephalic - Eye Eye exam: Present: PERRL, conjuntiva pink, sclera anicteric Pupils: Present: PERRL - ENT ENT exam: Present: normal exam - Neck Neck exam general surgery: Present: normal inspection, supple, trachea midline. Absent: lymphadenopathy - Respiratory Respiratory exam: Present: CTAB. Absent: accessory muscle use, rales, rhonchi, wheezes - Cardiovascular Cardiovascular exam: Present: RRR, +S1, +S2. Absent: diastolic murmur, gallop, rubs, systolic murmur - GI/Abdominal GI/Abdominal exam: Present: normal bowel sounds, soft, no peritoneal signs. Absent: distended, tenderness - Rectal Rectal exam: Present: deferred - Additional comments: exam deferred. - Extremities Exam Extremities exam: Present: warm, radial pulses palpable and symmetrical. Absent : calf tenderness, cyanotic, pedal edema - Back Exam Back exam: Present: normal inspection - Neurological Exam Neurological exam: Present: CN II-XII intact, oriented X3, no focal deficits. Absent: pronater drift, facial droop, speech deficit - Psychiatric Psychiatric exam: Present: normal affect, normal mood - Skin Skin exam: Present: dry, intact Internal Medicine: Result - Labs CBC & Chem 7: 03/31/18 04:00 03/31/18 04:00 Labs: Short CBC 03/31/18 Range/Units 04:00 WBC 8.1 (4.3-11.1) K/mcL Hgb 9.3 L (11.5-15.4) g/dL Hct 26.8 L (35.3-44.9) % Plt Count 218 (140-400) K/mcL Neutrophils # 6.0 (1.6-8.9) K/mcL BMP 03/31/18 04:00 Sodium 138 Potassium 2.8 L Chloride 106 Carbon Dioxide 22 L BUN 9 Creatinine 0.49 L Glucose 85 Calcium 7.0 L - Impressions Impressions KUB X-Ray 03/31/18 06:00 IMPRESSION: No evidence of bowel obstruction. Contrast is observed in the colon from a prior study. Diverticulosis is incidentally noted. D/ / Remy Silva MD / Remy Silva MD Interpreting Provider: Remy Silva MD - Diagnostic Studies Other Images Additional comments: Impressions KUB X-Ray 03/31/18 06:00 IMPRESSION: No evidence of bowel obstruction. Contrast is observed in the colon from a prior study. Diverticulosis is incidentally noted. D/ / Remy Silva MD / Remy Silva MD Interpreting Provider: Remy Silva MD Consult Discharge Plan - Plan Referrals: NONE,PCP [Primary Care Provider] -
[2018-03-31] MEDS: Acetaminophen 325 MG TABLET PO PRN (18:53)
[2018-04-01] MEDS: 0.9 % Sodium Chloride 1,000 ML IVC SCH ×2 (01:17→16:34)
[2018-04-01 04:06] LABS: Hematocrit 26.3 % (35.3-44.9)
[2018-04-01 04:28] LABS: Magnesium 1.7 mg/dL (1.6-2.6); Phosphorous 1.2 mg/dL (2.7-4.5); Potassium 3.4 mEq/L (3.5-5.1)
[2018-04-01] MEDS: *HR* Enoxaparin 40 MG/0.4 ML SYRINGE SQ SCH (06:15)
[2018-04-01] MEDS: Pantoprazole 40 MG VIAL IVP SCH (08:47)
[2018-04-01] MEDS: Simethicone 80 MG TAB.CHEW PO SCH ×4 (08:50→23:58)
[2018-04-01] MEDS: Loratadine 10 MG TABLET PO SCH (08:50)
[2018-04-01] MEDS: *HR* LORazepam 0.5 MG TABLET PO SCH (08:51)
[2018-04-01 14:50] LABS: Adenovirus F 40/41 PCR Not detected (Not detect); Astrovirus PCR Not detected (Not detect); C.difficile Toxin A/B by PCR Not detected (Not detect); Campylobacter by PCR Not detected (Not detect); Cryptosporidium by PCR Not detected (Not detect); Cyclospora cayetanensis PCR Not detected (Not detect); E. coli O157 by PCR Not detected (Not detect); Entamoeba histolytica PCR Not detected (Not detect); Enteroaggregative E.coli(EAEC) Not detected (Not detect); Enteropathogenic E.coli(EPEC) Not detected (Not detect); Enterotoxigenic E.coli (ETEC) Not detected (Not detect); Giardia lamblia PCR Not detected (Not detect); Norovirus GI/GII PCR Not detected (Not detect); Plesiomonas shigelloides PCR Not detected (Not detect); Rotavirus A PCR Not detected (Not detect); Salmonella PCR Not detected (Not detect); Sapovirus PCR Not detected (Not detect); Shig/EnteroinvasiveE coli EIEC Not detected (Not detect); Shigalike tox-prod E coli STEC Not detected (Not detect); Vibrio PCR Not detected (Not detect); Vibrio cholerae PCR Not detected (Not detect); Yersinia enterocolitica PCR Not detected (Not detect)
--- NOTE | 2018-04-01 15:01 | Internal Med Progress Note ---
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 ABD CT showed severe gaseous distention of the entire colon favored to represent ileus over obstruction. I am enema showed no evidence of distal colonic obstruction and resolution of the clotted distention concerning for colonic ileus/lucho's syndrome. Repeat KUB with no evidence of bowel obstruction. Evaluated by Gen. 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 Symptoms improved with gastric decompression. Advance diet as tolerated. Reconsult general surgery if needed (2) Electrolyte imbalance Current Visit: Yes Status: Acute Assessment and plan: With hypocalcemia, hypophosphatemia, echo, anemia. Secondary to loose stool. Monitor daily electrolytes and replace PRN (3) Diarrhea Current Visit: No Status: Acute Assessment and plan: has rectal tube. Unclear how long patient has had loose stool. This is likely the cause for electrolyte abnormalities. GI panel pending. Qualifiers: Diarrhea type: unspecified type Qualified Code(s): R19.7 - Diarrhea, unspecified (4) History of right hip hemiarthroplasty Current Visit: Yes Status: Chronic Assessment and plan: s/p right hip hemiarthroplasty 03/23/[address] Ingram (5) Anemia Current Visit: Yes Status: Acute Assessment and plan: Has known iron deficiency anemia and with recent surgical procedure. Hgb dropped to 7.7 on 03/28/18. Received 1 unit PRBC. Repeat Hgb stable in the ninth. No active bleeding. Monitor H&H, transfuse as needed. Continue iron supplementation. Qualifiers: Anemia type: other cause Other causes of anemia: acute posthemorrhagic Qualified Code(s): D62 - Acute posthemorrhagic anemia (6) Dementia Current Visit: Yes Status: Chronic Assessment and plan: per hx. Mentation appears to be at baseline Qualifiers: Dementia type: Alzheimer's disease Alzheimer's disease onset: late-onset Dementia behavioral disturbance: with behavioral disturbance Qualified Code(s) : 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 disease with late onset; F02.81 - Dementia in other diseases classified elsewhere with behavioral disturbance (7) Hypertension Current Visit: Yes Status: Chronic Assessment and plan: per hx. BP variable but overall acceptable. Continue home BP medication. Monitor BP and titrate PRN Qualifiers: Hypertension type: essential hypertension Qualified Code(s): I10 - Essential (primary) hypertension (8) Hypothyroidism Current Visit: Yes Status: Chronic Assessment and plan: Continue pts. levothyroxine. Qualifiers: Hypothyroidism type: unspecified Qualified Code(s): E03.9 - Hypothyroidism , unspecified (9) DVT prophylaxis Current Visit: Yes Status: Acute Assessment and plan: lovenox. - Time Spent With Patient Total time spent is greater than 50% in coordination of care (as documented) at patient's floor/unit and/or counseling patient: - Subjective Interval history: Seen and examined at bedside. Patient is new to me, information obtained from chart review and are an as patient has dementia and is a poor historian, does not provide details. She will arouse when her name is called but she does not engage in purposeful conversation. Discussed with staff at bedside and patient was up for breakfast earlier today and was conversing then. Family at bedside for collateral - Constitutional Vitals: Temp Pulse Resp BP Pulse Ox 98.8 F 78 16 97/61 96 04/01/18 11:32 04/01/18 11:32 04/01/18 11:32 04/01/18 11:32 04/01/18 11:32 General appearance: Present: A&O X 1, pleasant, no acute distress, answers questions appropriately - Head Head exam: Present: atraumatic, normocephalic - Eye Eye exam: Present: PERRL, conjuntiva pink, sclera anicteric Pupils: Present: PERRL - Neck Neck exam general surgery: Present: supple, trachea midline. Absent: lymphadenopathy - Respiratory Respiratory exam: Present: CTAB. Absent: accessory muscle use, rales, rhonchi, wheezes - Cardiovascular Cardiovascular exam: Present: RRR, +S1, +S2. Absent: diastolic murmur, gallop, rubs, systolic murmur - GI/Abdominal GI/Abdominal exam: Present: normal bowel sounds, soft, no peritoneal signs. Absent: distended, tenderness - Extremities Exam Extremities exam: Present: pedal edema, warm, radial pulses palpable and symmetrical. Absent: calf tenderness, cyanotic - Neurological Exam Neurological exam: Present: CN II-XII intact, oriented X3, no focal deficits. Absent: pronater drift, facial droop, speech deficit - Skin Skin exam: Present: dry, intact Internal Medicine: Result - Labs CBC & Chem 7: 04/01/18 03:55 04/01/18 03:55 Labs: Short CBC 04/01/18 Range/Units 03:55 Hgb 9.0 L (11.5-15.4) g/dL Hct 26.3 L (35.3-44.9) % BMP 04/01/18 03:55 Potassium 3.4 L Calcium 7.0 L - VTE Documentation of Mechanical Device: Venous foot pump, device Consult Discharge Plan - Plan Referrals: NONE,PCP [Primary Care Provider] -
[2018-04-01] MEDS: Potassium Chloride Elixir 20 MEQ/15 ML UDC PO SCH (16:20)
[2018-04-02] MEDS: Acetaminophen 325 MG TABLET PO PRN ×2 (02:12→21:02)
[2018-04-02] MEDS: Potassium Chloride Elixir 20 MEQ/15 ML UDC PO SCH (04:29)
[2018-04-02] MEDS: *HR* Enoxaparin 40 MG/0.4 ML SYRINGE SQ SCH (05:39)
[2018-04-02] MEDS: 0.9 % Sodium Chloride 1,000 ML IVC SCH (05:51)
[2018-04-02 06:10] LABS: BUN/Creatinine Ratio 14 (6-26); Blood Urea Nitrogen 8 mg/dL (8-23); Calcium 7.1 mg/dL (8.6-10.3); Carbon Dioxide 25 mEq/L (23-29); Chloride 110 mEq/L (98-107); Glucose 94 mg/dL (70-105); Osmolality,Calculated 290 (280-300); Potassium 3.1 mEq/L (3.5-5.1); Sodium 141 mEq/L (136-145); eGFR For African Americans > 60 (> 60); eGFR For Non-African Americans > 60 (> 60)
[2018-04-02 06:11] LABS: Hematocrit 26.4 % (35.3-44.9); Hemoglobin 8.3 g/dL (11.5-15.4); Mean Corpuscular HGB Conc 31.4 g/dL (31.6-35.5); Mean Corpuscular Hemoglobin 30.1 pg (28.0-33.3); Mean Corpuscular Volume 95.7 fL (83.0-100.0); Mean Platelet Volume 9.6 fL (9.4-12.4); Platelet Count 220 K/mcL (140-400); Red Blood Count 2.76 M/mcL (3.82-4.97); Red Cell Distribution Width 15.1 % (11.5-14.5)
[2018-04-02] MEDS: Loratadine 10 MG TABLET PO SCH (11:05)
[2018-04-02] MEDS: *HR* LORazepam 0.5 MG TABLET PO SCH (11:06)
[2018-04-02] MEDS: Simethicone 80 MG TAB.CHEW PO SCH ×4 (11:06→21:02)
[2018-04-02] MEDS: Pantoprazole 40 MG VIAL IVP SCH (11:06)
--- NOTE | 2018-04-02 13:04 | Internal Med Progress Note ---
Date of Encounter: 04/02/18 Time of Encounter: 13:03 - Assessment and plan (1) Dementia Current Visit: Yes Status: Chronic Assessment and plan: per hx. Mentation appears to be at baseline Qualifiers: Dementia type: Alzheimer's disease Alzheimer's disease onset: late-onset Dementia behavioral disturbance: with behavioral disturbance Qualified Code(s) : 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 disease with late onset; F02.81 - Dementia in other diseases classified elsewhere with behavioral disturbance (2) Hypertension Current Visit: Yes Status: Chronic Assessment and plan: Uncontrolled, add Norvasc to regimen Qualifiers: Hypertension type: essential hypertension Qualified Code(s): I10 - Essential (primary) hypertension (3) Hypothyroidism Current Visit: Yes Status: Chronic Assessment and plan: continue home meds Qualifiers: Hypothyroidism type: unspecified Qualified Code(s): E03.9 - Hypothyroidism , unspecified (4) Diarrhea Current Visit: Yes Status: Acute Assessment and plan: resolved GI panel negative Continue to monitor Qualifiers: Diarrhea type: unspecified type Qualified Code(s): R19.7 - Diarrhea, unspecified (5) Anemia Current Visit: Yes Status: Acute Assessment and plan: Has known iron deficiency anemia and with recent surgical procedure. Hgb dropped to 7.7 on 03/28/18. Received 1 unit PRBC. Repeat Hgb stable today. No active bleeding. Monitor H&H, transfuse as needed. Continue iron supplementation. Qualifiers: Anemia type: other cause Other causes of anemia: acute posthemorrhagic Qualified Code(s): D62 - Acute posthemorrhagic anemia (6) History of right hip hemiarthroplasty Current Visit: Yes Status: Chronic Assessment and plan: s/p right hip hemiarthroplasty 03/23/[address] 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 Ingram No new complains, said to have been sleeping for most of the day Awake upon eval and complains of "feeling cold" VSS Tolerating full liquid diet X48 hrs Advanced diet to soft diet Replace K If tolerating soft diet, may advance For SNF when ready - Constitutional Vitals: Temp Pulse Resp BP Pulse Ox 97.6 F 80 16 181/78 97 04/02/18 11:48 04/02/18 11:48 04/02/18 11:48 04/02/18 11:48 04/02/18 11:48 General appearance: Present: A&O X 1, pleasant, no acute distress, answers questions appropriately - Head Head exam: Present: atraumatic, normocephalic - Eye Eye exam: Present: PERRL, conjuntiva pink, sclera anicteric Pupils: Present: PERRL - Neck Neck exam general surgery: Present: supple, trachea midline. Absent: lymphadenopathy - Respiratory Respiratory exam: Present: CTAB. Absent: accessory muscle use, rales, rhonchi, wheezes - Cardiovascular Cardiovascular exam: Present: RRR, +S1, +S2. Absent: diastolic murmur, gallop, rubs, systolic murmur - GI/Abdominal GI/Abdominal exam: Present: normal bowel sounds, soft, no peritoneal signs. Absent: distended, tenderness - Extremities Exam Extremities exam: Present: warm, radial pulses palpable and symmetrical. Absent : calf tenderness, cyanotic, pedal edema - Neurological Exam Neurological exam: Present: alert, CN II-XII intact, no focal deficits. Absent : oriented X3, pronater drift, facial droop, speech deficit - Skin Skin exam: Present: dry Internal Medicine: Result - Labs CBC & Chem 7: 04/02/18 05:31 04/02/18 05:31 Labs: Short CBC 04/02/18 Range/Units 05:31 WBC 7.6 (4.3-11.1) K/mcL Hgb 8.3 L (11.5-15.4) g/dL Hct 26.4 L (35.3-44.9) % Plt Count 220 (140-400) K/mcL BMP 04/02/18 05:31 Sodium 141 Potassium 3.1 L Chloride 110 H Carbon Dioxide 25 BUN 8 Creatinine 0.57 L Glucose 94 Calcium 7.1 L - VTE Documentation of Mechanical Device: Venous foot pump, device Consult Discharge Plan - Plan Referrals: NONE,PCP [Primary Care Provider] -
[2018-04-02] MEDS: amLODIPine 5 MG TABLET PO SCH (13:51)
[2018-04-03 02:21] LABS: Hematocrit 28.8 % (35.3-44.9); Hemoglobin 9.3 g/dL (11.5-15.4); Mean Corpuscular HGB Conc 32.3 g/dL (31.6-35.5); Mean Corpuscular Hemoglobin 30.7 pg (28.0-33.3); Mean Platelet Volume 10.3 fL (9.4-12.4); Platelet Count 206 K/mcL (140-400); Red Blood Count 3.03 M/mcL (3.82-4.97); Red Cell Distribution Width 15.5 % (11.5-14.5)
[2018-04-03 02:41] LABS: BUN/Creatinine Ratio 16 (6-26); Blood Urea Nitrogen 10 mg/dL (8-23); Calcium 7.4 mg/dL (8.6-10.3); Carbon Dioxide 24 mEq/L (23-29); Chloride 109 mEq/L (98-107); Glucose 108 mg/dL (70-105); Osmolality,Calculated 290 (280-300); Potassium 3.5 mEq/L (3.5-5.1); Sodium 140 mEq/L (136-145); eGFR For African Americans > 60 (> 60); eGFR For Non-African Americans > 60 (> 60)
--- NOTE | 2018-04-03 09:44 | Physician Discharge Referral ---
ExtendedCare Referral Info Transfer To: SNF Provider in Charge: bob Dawn Provider in Charge after Transfer: PCP Institutional Level of Care: Skilled - Diagnosis (1) Dementia Priority: Secondary Status: Chronic (2) Hypertension Priority: Secondary Status: Chronic (3) Hypothyroidism Priority: Secondary Status: Chronic (4) Diarrhea Priority: Primary Status: Resolved (5) Anemia Priority: Secondary Status: Chronic (6) History of right hip hemiarthroplasty Priority: Primary Status: Chronic (7) Fredy's syndrome Priority: Primary Status: Acute (8) DVT prophylaxis Priority: Primary Status: Acute (9) Electrolyte imbalance Priority: Primary Status: Resolved Prognosis: Fair Aware of Diagnosis: Family Aware of Prognosis: Family - Transfer Medications Prescriptions: LORazepam [Ativan] 0.5 mg PO DAILY 5 Days #5 tablet Home Medications: Levothyroxine [Synthroid] 175 mcg PO 0630 03/22/18 [History] Loratadine [Claritin] 10 mg PO DAILY 03/22/18 [History] Pravastatin Sodium [Pravachol] 20 mg PO HS 03/22/18 [History] Sertraline [Zoloft] 150 mg PO DAILY 03/22/18 [History] Docusate [Colace] 100 mg PO BID capsule 03/25/18 [Rx] Ferrous Sulfate 325 mg PO BIDWM tablet 03/25/18 [Rx] Acetaminophen [Tylenol] 650 mg PO Q6HR PRN tablet 04/03/18 [Rx] Calcium Carbonate [Tums] 1,000 mg PO QIDAC tab.chew 04/03/18 [Rx] Enoxaparin [Lovenox] 40 mg SQ 0600 syringe 04/03/18 [Rx] LORazepam [Ativan] 0.5 mg PO DAILY 5 Days #5 tablet 04/03/18 [Rx] Simethicone [Gas-X] 120 mg PO QID tab.chew 04/03/18 [Rx] amLODIPine [Norvasc] 10 mg PO DAILY tablet 04/03/18 [Rx] Allergies/Adverse Reactions: 3 Allergy/AdvReac Type Severity Reaction Status Date / Time No Known Allergies Allergy Verified 07/07/16 11:48 - Respiratory Orders Smoking Cessation: Smoking cessation has been advised. For more information, call the [place] Tobacco Quit Line at 4-087-ASKZ-NOW. - Advance Directives Code Status: Full Code - Mobility Orders Other (per PT) - Rehabiliation Orders Rehab Potential: Fair Rehab Orders: Evaluation for Physical Therapy - Diet Orders Mechanical Soft CERTIFICATION: I certify that the transfer of the above named patient to an Extended Care Facility is necessary for the continuing treatment of the diagnosis listed. The above information is true and accurate reflection of patient's current condition. Confidential - Redisclosure prohibited without a patient's written consent.
--- NOTE | 2018-04-03 09:48 | Discharge Summary ---
- NOTES TO OUTPATIENT PROVIDER Notes to Outpatient Provider: Admitted and managed for oglivie's syndrome and multiple electrolyte abnormalities as a result of that. All resolved Orders not resulted at time of discharge: Pending orders 04/04/18 04:00 BMP [Basic Metabolic Panel] AM 0400 Complete Blood Count w/o Diff [HEME] AM 0400 04/05/18 04:00 BMP [Basic Metabolic Panel] AM 0400 Complete Blood Count w/o Diff [HEME] AM 04004/06/18 04:00 BMP [Basic Metabolic Panel] AM 0400 Complete Blood Count w/o Diff [HEME] AM 0400 Date of Encounter: 04/03/18 Time of Encounter: 09:44 - Discharge Diagnosis (1) Dementia Priority: Secondary Status: Chronic Qualifiers: Dementia type: Alzheimer's disease Alzheimer's disease onset: late-onset Dementia behavioral disturbance: with behavioral disturbance Qualified Code(s) : 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 disease with late onset; F02.81 - Dementia in other diseases classified elsewhere with behavioral disturbance (2) Hypertension Priority: Secondary Status: Chronic Qualifiers: Hypertension type: essential hypertension Qualified Code(s): I10 - Essential (primary) hypertension (3) Hypothyroidism Priority: Secondary Status: Chronic Qualifiers: Hypothyroidism type: unspecified Qualified Code(s): E03.9 - Hypothyroidism , unspecified (4) Diarrhea Priority: Primary Status: Resolved Qualifiers: Diarrhea type: unspecified type Qualified Code(s): R19.7 - Diarrhea, unspecified (5) Anemia Priority: Secondary Status: Acute Qualifiers: Anemia type: other cause Other causes of anemia: acute posthemorrhagic Qualified Code(s): D62 - Acute posthemorrhagic anemia (6) History of right hip hemiarthroplasty Priority: Primary Status: Chronic (7) Fredy's syndrome Priority: Primary Status: Resolved (8) DVT prophylaxis Priority: Primary Status: Acute (9) Electrolyte imbalance Priority: Primary Status: Resolved Hospital course: Ms. Johnson is a 87 year old female with PMH of dementia, HTN, Hypothyroidism who was admitted following post-op ileus/oglivie's syndrome, as well as post-op anemia, and multiple electrolyte abnormalities She received one unit RBC and Hb has been stable She also received multiple elctrolyte derangements which were all corrected She is at her baseline mental status (oriented to self only) She is seen and evaluated at bedside this a.m, chronic medical conditions are stable and acute new medical diagnoses have resolved She is stable to return to SNF when socially cleared/accepted Discharge discussed with: patient, family, nurse, social work, case management - Time Spent with Patient Total time spent providing and/or coordinating discharge services: Greater than 30 minutes - Discharge Medications Prescriptions: LORazepam [Ativan] 0.5 mg PO DAILY 5 Days #5 tablet Home Medications: Levothyroxine [Synthroid] 175 mcg PO 0630 03/22/18 [History] Loratadine [Claritin] 10 mg PO DAILY 03/22/18 [History] Pravastatin Sodium [Pravachol] 20 mg PO HS 03/22/18 [History] Sertraline [Zoloft] 150 mg PO DAILY 03/22/18 [History] Docusate [Colace] 100 mg PO BID capsule 03/25/18 [Rx] Ferrous Sulfate 325 mg PO BIDWM tablet 03/25/18 [Rx] Acetaminophen [Tylenol] 650 mg PO Q6HR PRN tablet 04/03/18 [Rx] Calcium Carbonate [Tums] 1,000 mg PO QIDAC tab.chew 04/03/18 [Rx] Enoxaparin [Lovenox] 40 mg SQ 0600 syringe 04/03/18 [Rx] LORazepam [Ativan] 0.5 mg PO DAILY 5 Days #5 tablet 04/03/18 [Rx] Simethicone [Gas-X] 120 mg PO QID tab.chew 04/03/18 [Rx] amLODIPine [Norvasc] 10 mg PO DAILY tablet 04/03/18 [Rx] Allergies/Adverse Reactions: 3 Allergy/AdvReac Type Severity Reaction Status Date / Time No Known Allergies Allergy Verified 07/07/16 11:48 Date of admission: 03/27/18 10:52 Primary care physician: PCP NONE Discharging clinician: Cruzito Dawn Anticipated date of discharge: 04/03/18 - Constitutional Vitals: Temp Pulse Resp BP Pulse Ox 98.0 F 80 16 148/76 95 04/03/18 08:11 04/03/18 08:11 04/03/18 08:11 04/03/18 08:11 04/03/18 08:11 General appearance: Present: A&O X 1, pleasant, no acute distress, answers questions appropriately - Head Head exam: Present: atraumatic, normocephalic - Eye Eye exam: Present: PERRL, conjuntiva pink, sclera anicteric Pupils: Present: PERRL - Neck Neck exam general surgery: Present: supple, trachea midline. Absent: lymphadenopathy - Respiratory Respiratory exam: Present: CTAB. Absent: accessory muscle use, rales, rhonchi, wheezes - Cardiovascular Cardiovascular exam: Present: RRR, +S1, +S2. Absent: diastolic murmur, gallop, rubs, systolic murmur - GI/Abdominal GI/Abdominal exam: Present: normal bowel sounds, soft, no peritoneal signs. Absent: distended, tenderness - Extremities Exam Extremities exam: Present: warm, radial pulses palpable and symmetrical. Absent : calf tenderness, cyanotic, pedal edema - Neurological Exam Neurological exam: Present: alert, CN II-XII intact, no focal deficits. Absent : oriented X3, pronater drift, facial droop, speech deficit - Skin Skin exam: Present: dry, intact - Patient Status Disposition: Transfer SNF Condition: Fair Functional capacity at discharge: bed bound Overall status at discharge: patient is progressing back to baseline - Discharge Instructions Follow Up With: NONE,PCP [Primary Care Provider] - Forms: ED Satisfaction Letter, Work/School Release - Diet and Activity Activity: as per physical therapy, resume usual activities as tolerated Diet: low salt diet - VTE Documentation of Mechanical Device: Venous foot pump, device
[2018-04-03] MEDS: Loratadine 10 MG TABLET PO SCH (10:12)
[2018-04-03] MEDS: amLODIPine 5 MG TABLET PO SCH (10:12)
[2018-04-03] MEDS: *HR* LORazepam 0.5 MG TABLET PO SCH (10:12)
[2018-04-03] MEDS: Simethicone 80 MG TAB.CHEW PO SCH ×2 (10:13→12:58)
[2018-04-03] MEDS: Pantoprazole 40 MG VIAL IVP SCH (10:13)
[2018-04-03] MEDS: *HR* Enoxaparin 40 MG/0.4 ML SYRINGE SQ SCH (10:13)
[2018-04-03 13:33] VITALS: BP 161/84
== END 2018-04-03 16:05 | DRG 389 ==
LOC: 3NENU 19:16 → EMEROO 19:16 → 3NENU 23:43 → SUATTDRO 03-27 10:52 → 3NENU 04-02 17:58
PROVIDERS: ADMIT Internal Medicine Hematology & Oncology; ATTEND Internal Medicine